=== PATIENT | female | born 1995 | race Caucasian/White ===

== ENCOUNTER 2020-01-26 16:43 | Observation (INO) | payer OTHER, SELFPAY ==
[2020-01-26 17:00] VITALS: BMI 32.2
[2020-01-26 17:05] VITALS: BP 136/79; PULSE 94
[2020-01-26 17:16] VITALS: BP 132/74; PULSE 98
[2020-01-26 17:20] VITALS: TEMP 37
[2020-01-26 17:34] LABS: Glucose Point of Care 120 (65-105)
--- NOTE | 2020-01-26 17:34 | OBADM ---
This patient, Artemio Ching, admitted to the OB room [facility] for observation. Patient/family oriented to hospital policies and general routines including ID bracelet, bed and alarms, visiting hours, pain management, procedures, bathroom and other care routines, personal items, smoking policy, room service/diet, and visiting hours. Patient/Family are encouraged to report perceived risks to care and to ask questions if they do not understand what they are told or what they should do.
[2020-01-26 17:45] VITALS: BP 137/85; PULSE 102
[2020-01-26] MEDS: ONDANSETRON HCL ODT 4 MG TABLET 8 MG PO (17:48)
[2020-01-26 18:01] VITALS: BP 134/82; PULSE 98
[2020-01-26 18:15] VITALS: BP 129/79; PULSE 96
--- NOTE | 2020-02-01 06:58 | PM.OBTRLD ---
OB - Triage/Final Diagnosis Visit Information Date of evaluation: 01/26/20 Reason for evaluation: other (dizziness) Evaluation Laboratory results: Laboratory Tests 01/26/20 17:30 POC Capillary Glucose 120 H
== END 2020-01-26 18:28 | disposition home or self-care (01) ==
LOC: ANHOBPP 01-28 13:18
PROVIDERS: Obstetrics & Gynecology; Admitting Provider Student in an Organized Health Care Education/Training Program; Visit Provider Student in an Organized Health Care Education/Training Program
DX: R42 Dizziness and giddiness (principal)
CPT/HCPCS: A9270; G0378; G0379

== ENCOUNTER 2020-05-31 08:59 | Outpatient (CLI) | payer OTHER, SELFPAY ==
[2020-05-31] VITALS (9 sets, daily range): BP systolic 117–152; BP diastolic 84–100; PULSE 96–142; RESP 18; TEMP 36.3
--- NOTE | 2020-05-31 08:59 | PC.NURSE ---
Patient sent to L&D from her OB office for elevated blood pressures. Patient reports occasional headaches and blurred vision.
--- NOTE | 2020-05-31 09:44 | PM.OBTRLD ---
OB - Triage/Final Diagnosis Visit Information Date of evaluation: 05/31/20 Reason for evaluation: other (gest htn) Evaluation Vital signs: Vital Signs - 24 hr 05/31/20 09:11 05/31/20 09:15 05/31/20 09:30 Pulse Rate 115 H 142 H 113 H Blood Pressure 152/100 H 142/84 H 131/90
[2020-05-31 09:53] LABS: Basophils Percent Auto 0.3 % (0.2-1.2); Eosinophils Absolute Auto 0.1 K/mm3 (0-0.3); Eosinophils Percent Auto 0.8 % (0-4.4); Hematocrit 32.5 % (37.0-47.0); Immature Granulocyte Absolute 0.08 K/mm3 (0.00-0.031); Immature Granulocyte Percent A 0.9 % (0-0.5); Lymphocytes Absolute Auto 1.29 K/mm3 (0.9-3.2); Lymphocytes Percent Auto 14.9 % (18.3-44.2); Mean Corpuscular HGB Conc 33.8 g/dl (32-36); Mean Corpuscular Hemoglobin 28.9 pg (26-34); Mean Corpuscular Volume 85.5 fl (80-100); Mean Platelet Volume 12.6 fl (7.4-10.4); Monocytes Absolute Auto 0.7 K/mm3 (0.1-0.6); Monocytes Percent Auto 8.6 % (2.6-8.5); Neutrophils Absolute Auto 6.4 K/mm3 (1.3-6.7); Neutrophils Percent Auto 74.5 % (45.5-73.1); Platelet Count Result 160 k/mm3 (150-375); Red Cell Distribution Width 14.7 % (11.5-14.5); White Blood Count 8.6 K/mm3 (4.5-10.0)
[2020-05-31 09:56] LABS: Add Urine Microscopic? NO; Appearance Urine Clear (Clear); Bilirubin Urine Negative (Negative); Blood Urine Negative (Negative); Color Urine Straw (Yellow); Glucose Urine UA Negative (Negative); Ketones Urine Negative (Negative); Leukocyte Esterase Ur Negative LEU/UL (NEGATIVE); Nitrate Urine Negative (Negative); Protein Urine Negative (Negative); Specific Grav Ur 1.005 (1.001-1.035); Urobilinogen Urine Negative mg/dL (<2.0)
[2020-05-31 10:00] LABS: Creatinine Urine 36.4 mg/dL; Total Protein Urine Random 16 mg/dL
[2020-05-31 10:08] LABS: Alanine Aminotransferase 12 U/L (4-35); Albumin Level 3.3 g/dL (3.5-5.1); Alkaline Phosphatase 132 U/L (38-126); Anion Gap 8 mmol/L (8-16); Aspartate Amino Transferase 18 U/L (14-36); Bilirubin,Total 0.3 mg/dL (0.2-1.3); Blood Urea Nitrogen 6 mg/dL (7-17); Carbon Dioxide 23 mmol/L (22-30); Chloride 105 mmol/L (98-107); Estimated Glomerular Filt Rate > 60; Glucose 93 mg/dL (65-105); Sodium 136 mmol/L (137-145); Uric Acid 6.1 mg/dL (2.5-7.5)
[2020-05-31 10:23] LABS: Potassium 3.3 mmol/L (3.4-5.0)
--- NOTE | 2020-05-31 10:29 | PC.NURSE ---
Dr. Anaya notified regarding reactive nst, serial blood pressures, and lab results. Received orders from Dr. Anaya to cancel 24 hour urine order and to discharge patient to home.
== END 2020-05-31 10:38 | disposition home or self-care (01) ==
LOC: ANHOBOP 09:05 → ANHOBPP 09:05
PROVIDERS: Visit Provider Obstetrics & Gynecology
DX: O13.9 Gestational [pregnancy-induced] hypertension without significant proteinuria, unspecified trimester (principal); O26.899 Other specified pregnancy related conditions, unspecified trimester; R51.9 Headache, unspecified; H53.8 Other visual disturbances; Z3A.00 Weeks of gestation of pregnancy not specified
CPT/HCPCS: 36415; 59025; 80053; 81003; 82570; 84156; 84550; 85025; 87086; 99199

== ENCOUNTER 2020-06-05 09:35 | Outpatient (RCR) | payer OTHER, SELFPAY ==
[2020-06-05 10:13] LABS: Basophils Percent Auto 0.4 % (0.2-1.2); Eosinophils Absolute Auto 0.1 K/mm3 (0-0.3); Eosinophils Percent Auto 1.1 % (0-4.4); Hematocrit 33.2 % (37.0-47.0); Hemoglobin 11.4 g/dL (12.0-15.0); Immature Granulocyte Absolute 0.09 K/mm3 (0.00-0.031); Lymphocytes Absolute Auto 1.49 K/mm3 (0.9-3.2); Lymphocytes Percent Auto 16.1 % (18.3-44.2); Mean Corpuscular HGB Conc 34.3 g/dl (32-36); Mean Corpuscular Hemoglobin 28.8 pg (26-34); Mean Corpuscular Volume 83.8 fl (80-100); Mean Platelet Volume 12.3 fl (7.4-10.4); Monocytes Absolute Auto 0.6 K/mm3 (0.1-0.6); Monocytes Percent Auto 6.6 % (2.6-8.5); Neutrophils Absolute Auto 6.9 K/mm3 (1.3-6.7); Neutrophils Percent Auto 74.8 % (45.5-73.1); Platelet Count Result 160 k/mm3 (150-375); Red Blood Count 3.96 M/mm3 (4.2-5.4); Red Cell Distribution Width 14.6 % (11.5-14.5); White Blood Count 9.3 K/mm3 (4.5-10.0)
[2020-06-05 10:17] LABS: Add Urine Microscopic? NO; Appearance Urine Clear (Clear); Bilirubin Urine Negative (Negative); Blood Urine Negative (Negative); Color Urine Colorless (Yellow); Glucose Urine UA Negative (Negative); Ketones Urine Negative (Negative); Leukocyte Esterase Ur Negative LEU/UL (NEGATIVE); Nitrate Urine Negative (Negative); Protein Urine Negative (Negative); Urobilinogen Urine Negative mg/dL (<2.0)
[2020-06-05 10:24] LABS: Specific Grav Ur 1.003 (1.001-1.035)
[2020-06-05 10:25] LABS: Creatinine Urine 12.2 mg/dL; Total Protein Urine Random 15 mg/dL
[2020-06-05 10:26] LABS: Alanine Aminotransferase 11 U/L (4-35); Albumin Level 3.3 g/dL (3.5-5.1); Alkaline Phosphatase 133 U/L (38-126); Anion Gap 6 mmol/L (8-16); Aspartate Amino Transferase 18 U/L (14-36); Bilirubin,Total 0.2 mg/dL (0.2-1.3); Blood Urea Nitrogen 6 mg/dL (7-17); Calcium 9.2 mg/dL (8.4-10.2); Carbon Dioxide 23 mmol/L (22-30); Chloride 105 mmol/L (98-107); Estimated Glomerular Filt Rate > 60; Glucose 109 mg/dL (65-105); Potassium 3.5 mmol/L (3.4-5.0); Sodium 134 mmol/L (137-145); Uric Acid 5.3 mg/dL (2.5-7.5)
[2020-06-05 12:12] VITALS: BP 137/86
[2020-06-05 12:13] VITALS: BP 137/86
== END 2020-06-08 08:05 | disposition home or self-care (01) ==
LOC: ANHOBOP 09:35
PROVIDERS: Visit Provider Obstetrics & Gynecology
DX: O26.893 Other specified pregnancy related conditions, third trimester (principal); R03.0 Elevated blood-pressure reading, without diagnosis of hypertension; Z3A.37 37 weeks gestation of pregnancy
CPT/HCPCS: 36415; 59025; 80053; 81003; 82570; 84156; 84550; 85025; 87086; 87088

== ENCOUNTER 2020-06-05 17:52 | Inpatient (IN) | payer OTHER, SELFPAY ==
[2020-06-05] VITALS (18 sets, daily range): BP systolic 133–149; BP diastolic 76–99; PULSE 79–111; BMI 37.5
--- NOTE | 2020-06-05 18:20 | LDADM ---
This patient, Artemio Ching, was admitted to Labor/Delivery/Recovery 107 on 06/05/20 at 17:52. Plans for labor, pain management and were discussed with patient. Patient/family oriented to hospital policies and general routines including ID bracelet, bed and alarms, visiting hours, pain management, procedures, bathroom and other care routines, personal items, smoking policy, room service/diet and guest tray routines, security routines, and visiting hours. Patient/Family are encouraged to report perceived risks to care and to ask questions if they do not understand what they are told or what they should do. See OBIX for further documentation.
[2020-06-05] MEDS: DINOPROSTONE 10 MG VAG INSERT VAGINAL (19:13)
[2020-06-06] VITALS (221 sets, daily range): BP systolic 81–178; BP diastolic 18–134; PULSE 68–214; RESP 18; TEMP 36.1–36.7; O2SAT 76–100
[2020-06-06] MEDS: fentaNYL CITRATE INJ (*CRX) 100 MCG/2 ML VIAL 50 MCG IV PUSH ×2 (00:26→03:48)
[2020-06-06] MEDS: FAMOTIDINE 20 MG/2 ML VIAL IV PUSH (04:19)
--- NOTE | 2020-06-06 06:06 | WPDANESEPP ---
Anes - Eval Pre Procedure Procedure: labor epidural Date/Time: 06/06/20 06:06 Surgeon: sim thakur Pre Op Diagnosis: Induction of Labor Patient Data Age: 25 Gender: F Height: 1.57 m Weight: 93 kg Last Vital Signs Temp 36.4 C 06/06/20 05:36 Pulse 95 06/06/20 06:00 BP 140/93 H 06/06/20 06:00 Allergies Allergy/AdvReac Type Severity Reaction Status Date / Time No Known Allergies Allergy Verified 01/26/20 17:43 Home Medications Medication Instructions Recorded Confirmed Type PNV cmb#95-ferrous fumarate-FA 1 tablet PO DAILY 05/29/20 05/29/20 History [] ergocalciferol (vitamin D2) 1,250 mcg PO WEEKLY 05/29/20 05/29/20 History [Vitamin D2] ferrous sulfate [Iron (ferrous 325 mg PO DAILY 05/29/20 05/29/20 History sulfate)] ondansetron 4 mg PO Q6H PRN 05/29/20 05/29/20 History Laboratory Tests 06/05/20 06/05/20 19:09 19:09 RPR Pending Blood Type O Positive Antibody Screen Negative Patient hx anesthesia problems: none Family hx anesthesia problems: none PMFSH Past Medical History Medical History (Updated 06/06/20 @ 06:07 by Nieves Adame CRNA) PIH ( induced hypertension) Family History Family History (Updated 05/29/20 @ 13:02 by Koko Palmer RN) Sibling Diabetes mellitus Thyroid disease Father Hypertension Social History Social History Smoking status: Never smoker Second hand tobacco smoke exposure: Yes Substance use: never Gender identity (if verbalized by the patient): Female Spiritual care concerns: No Exam Day of Procedure 06/06/20 06:06
[2020-06-06] MEDS: OXYTOCIN 30 UNITS/NS 500 ML 30 UNITS/500 ML BAG IV CONT (06:19)
[2020-06-06] MEDS: LACTATED RINGERS 1,000 ML 125 ML IV CONT (06:45)
--- NOTE | 2020-06-06 06:46 | PM.IMHP ---
H&P: HPI History of Present Illness Date/Time: 06/06/20 06:46 Chief complaint: Induction of Labor Narrative: Artemio Ching is a 25 year old female whose last menstrual period August 2019, EDC 06/24/2020 confirmed by 7 week ultrasound presents at 30 7 and half weeks gestation for induction of she has had worsening elevated blood pressures. She has a trace protein she has had a headache. Her cervix is unfavorable and loss seen and test with Cervidil. Her has been uncomplicated prior although she had a diabetic screen by her 3hour GTT was normal she is negative for group B strep Review of Systems Review of Systems: All systems reviewed & are unremarkable except as noted in HPI and below PMFSH Past Medical History Medical History PIH ( induced hypertension) Family History Family History Sibling Diabetes mellitus Thyroid disease Father Hypertension Social History Social History Smoking status: Never smoker Second hand tobacco smoke exposure: Yes Substance use: never Gender identity (if verbalized by the patient): Female Spiritual care concerns: No Meds Home Medications and Allergies Home Medications Medication Instructions Recorded Confirmed Type PNV cmb#95-ferrous fumarate-FA 1 tablet PO DAILY 05/29/20 05/29/20 History [] ergocalciferol (vitamin D2) 1,250 mcg PO WEEKLY 05/29/20 05/29/20 History [Vitamin D2] ferrous sulfate [Iron (ferrous 325 mg PO DAILY 05/29/20 05/29/20 History sulfate)] ondansetron 4 mg PO Q6H PRN 05/29/20 05/29/20 History Allergies Allergy/AdvReac Type Severity Reaction Status Date / Time No Known Allergies Allergy Verified 01/26/20 17:43 Vital Signs Vital Signs - 24 hr 06/05/20 18:19 06/05/20 18:30 06/05/20 18:45 Temperature Pulse Rate 111 H 109 H 110 H Blood Pressure 149/95 H 133/97 H 141/91 H 06/05/20 19:15 06/05/20 19:30 06/05/20 19:45 Temperature Pulse Rate 79 95 91 Blood Pressure 144/96 H 134/82 145/88 H 06/05/20 20:00 06/05/20 20:15 06/05/20 20:30 Temperature Pulse Rate 92 90 101 H Blood Pressure 143/90 H 146/79 H 133/76 06/05/20 20:45 06/05/20 21:00 06/05/20 21:15 Temperature Pulse Rate 89 93 90 Blood Pressure 138/84 147/91 H 140/87 06/05/20 22:36 06/05/20 22:45 06/05/20 23:00 Temperature Pulse Rate 99 93 99 Blood Pressure 146/98 H 147/91 H 146/99 H 06/05/20 23:15 06/05/20 23:30 06/05/20 23:45 Temperature Pulse Rate 99 88 95 Blood Pressure 149/95 H 140/90 133/82 06/06/20 00:00 06/06/20 00:30 06/06/20 00:34 Temperature 97.4 F L Pulse Rate 106 H 86 Blood Pressure 128/72 141/89 H 06/06/20 00:45 06/06/20 01:00 06/06/20 01:15 Temperature Pulse Rate 85 78 94 Blood Pressure 143/81 H 130/84 147/94 H 06/06/20 01:30 06/06/20 01:45 06/06/20 01:50 Temperature Pulse Rate 82 92 85 Blood Pressure 149/92 H 178/88 H 134/89 06/06/20 02:00 06/06/20 02:15 06/06/20 02:30 Temperature Pulse Rate 92 103 H 106 H Blood Pressure 122/71 125/76 120/74 06/06/20 02:45 06/06/20 03:00 06/06/20 03:15 Temperature Pulse Rate 108 H 106 H 100 Blood Pressure 122/72 114/70 143/92 H 06/06/20 03:30 06/06/20 03:45 06/06/20 04:00 Temperature Pulse Rate 95 97 92 Blood Pressure 141/83 H 149/91 H 147/82 H 06/06/20 04:15 06/06/20 04:30 06/06/20 04:45 Temperature Pulse Rate 97 105 H 88 Blood Pressure 140/83 140/85 146/101 H 06/06/20 05:36 06/06/20 05:37 06/06/20 05:45 Temperature 97.6 F Pulse Rate 102 H 99 Blood Pressure 138/91 H 138/98 H 06/06/20 06:00 06/06/20 06:15 06/06/20 06:30 Temperature Pulse Rate 95 96 94 Blood Pressure 140/93 H 133/93 H 135/95 H 06/06/20 06:45 Temperature Pulse Rate 85 Blood Pressure 139/85 Exam Co
[2020-06-06] MEDS: fentaNYL CITRATE INJ (*CRX) 100 MCG/2 ML VIAL IV PUSH (07:01)
[2020-06-06 08:57] LABS: Rapid Plasma Reagin Non-Reactive (NonReactive)
--- NOTE | 2020-06-06 09:44 | PM.OBPNVD ---
OB - PN: Subj Subjective Date/time seen: 06/06/20 09:44 another episode of decels pit off/repositiones fhts good now iupc and fse in place watch closely OB - PN: Obj Data Labs Labs: Laboratory Results - last 24 hr 06/05/20 06/05/20 19:09 19:09 RPR Non-reactive Blood Type O Positive Antibody Screen Negative OB - PN A/P Time Spent With Patient Time: Total time spent is greater than 50% in coordination of care (as documented) at patient's floor/unit and/or counseling patient:
--- NOTE | 2020-06-06 15:52 | PM.OBPRVD ---
OB - Delivery Note Procedure Delivery date: 06/06/20 Procedure: mil/ events: Induced HTN and Labor Induction Intrapartal events: None Induction method: AROM Delivery augmentation: pitocin Delivery monitor: external FHT, internal FHT and internal uterine Route of delivery: Episiotomy description: None Laceration Description: None Anesthesia type: Epidural Disposition: floor Baby Date of : 06/06/20 Time of : 15:44 Weeks of gestation at delivery: 38 Infant gender: Male presentation: vertex position: Right Occiput Anterior Placenta delivery description: Spontaneous cord vessel description: 3 Vessels score one minute: 8 score five minutes: 9
[2020-06-06] MEDS: OXYTOCIN 30 UNITS/NS 500 ML 30 UNITS/500 ML BAG 125 UNITS IV CONT (16:45)
--- NOTE | 2020-06-06 18:49 | PC.NURSE ---
This patient, Artemio Ching, was received from Labor and Deliver on 06/06/20 at 1846. Personal belongings list checked and signed. Patient/family oriented to unit policies and routines
[2020-06-06] MEDS: IBUPROFEN 600 MG TABLET PO (20:34)
[2020-06-07] MEDS: IBUPROFEN 600 MG TABLET PO ×2 (05:01→16:09)
[2020-06-07 05:09] LABS: Hematocrit 31.3 % (37.0-47.0); Hemoglobin 10.6 g/dL (12.0-15.0)
--- NOTE | 2020-06-07 06:59 | PM.OBPNVD ---
OB - PN: Subj Subjective Date/time seen: 06/07/20 06:59 Patient comments: no complaints and pain well controlled baby status: doing well and nursing well OB - PN: Obj Data Labs CBC & Chem 7: 06/07/20 04:35 Labs: Laboratory Results - last 24 hr 06/05/20 06/07/20 19:09 04:35 Hgb 10.6 L Hct 31.3 L RPR Non-reactive OB - PN A/P Plan day: 1 Plan: routine care Time Spent With Patient Time: Total time spent is greater than 50% in coordination of care (as documented) at patient's floor/unit and/or counseling patient: Time with patient: less than 15 minutes Review of Systems Review of Systems: All systems reviewed & are unremarkable except as noted in HPI and below Exam Const: General: no acute distress Eyes: General: appearance normal, both eyes and all related structures Neck: Neck: supple and no JVD Thyroid: thyroid normal Resp: Effort & Inspection: normal respiratory effort Auscultation: clear to auscultation bilaterally Cardio: Rate: regular rate Rhythm: regular rhythm GI: Inspection: non-distended GI Palp: Yes Soft to palpation, No Tenderness to palpation present (GI) and No Guarding due to palpation present (GI) Auscultation: normal bowel sounds : General: Yes bladder normal to palpation External Female Exam: normal external appearance Speculum Exam - Vagina: normal vaginal discharge and No vaginal bleeding Speculum Exam - Cervix: nontender Bimanual exam- vagina & uterus: bladder normal to palpation and No Cervical tenderness present OB/external & speculum: No vaginal bleeding Skin: General skin exam: no rashes or lesions noted Extrem: General: normal to inspection and no edema Psych: Mental Status: mental status grossly normal Affect: normal affect
[2020-06-07] MEDS: MULTIVIT/MIN/PREN/FOL AC/IRON TABLET 1 TAB PO (07:41)
[2020-06-07] MEDS: LANOLIN (LANSINOH) 7.5 GM CREAM 1 APPLIC TOPICAL (07:41)
[2020-06-07] MEDS: ACETAMINOPHEN 325 MG TABLET 650 MG PO ×2 (07:43→16:10)
[2020-06-07 07:45] VITALS: BP 142/83; PULSE 91; RESP 18; TEMP 36.8; O2SAT 100
--- NOTE | 2020-06-07 13:23 | WPDANLDPN2 ---
Anes-Prog Note L&D Date/Time: 06/07/20 13:23 Comfortable throughout: labor and delivery Neuraxial method: epidural Epidural/Spinal procedure site: tender Neuro status: Neuro function grossly intact. Cardiovascular status: normal Respiratory status: normal Airway patency: baseline Mental status: baseline Post-Op hydration status: normal Vital Signs: Last Vital Signs Temp 98.2 F 06/07/20 07:45 Pulse 91 06/07/20 07:45 Resp 18 06/07/20 07:45 BP 142/83 H 06/07/20 07:45 Pulse Ox 100 06/07/20 07:45 Pain score (VAS): 2/10 I/O: Intake & Output 06/06/20 06/07/20 06/07/20 23:59 07:59 15:59 Intake Total 1500 Balance 1500 Patient feedback: Patient satisfied with anesthetic care.
--- NOTE | 2020-06-07 17:35 | PC.NURSE ---
Patient viewed the discharge video Mother & Baby Care, The First Two Weeks . Patient was given the opportunity and encouraged to ask questions. Patient verbalized understanding of information shared and has been given the mother/baby guide for home reference.
[2020-06-07 19:50] VITALS: BP 141/94; PULSE 98; RESP 16; TEMP 36.4; O2SAT 99
[2020-06-08 05:05] VITALS: BP 139/85
[2020-06-08] MEDS: IBUPROFEN 600 MG TABLET PO (05:05)
--- NOTE | 2020-06-08 06:13 | P.DS_ITS ---
DS: Admitting Diagnosis Admitting Diagnosis Admitting Diagnosis: Induction of Labor term iup/gest htn DS: Summary Time Spent with Patient Time attestation: Total time spent providing and/or coordinating discharge se rvices: Patient was admitted for induction of labor secondary to mildly elevated blood pressures at 38 weeks. She underwent spontaneous vaginal delivery which was unremarkable. Hospital course was unremarkable. Her condition upon discharge was stable Exam Const: General: no acute distress Eyes: General: appearance normal, both eyes and all related structures Neck: Neck: supple and no JVD Thyroid: thyroid normal Resp: Effort & Inspection: normal respiratory effort Auscultation: clear to auscultation bilaterally Cardio: Rate: regular rate Rhythm: regular rhythm GI: Inspection: non-distended GI Palp: Yes Soft to palpation, No Tenderness to palpation present (GI) and No Guarding due to palpation present (GI) Auscultation: normal bowel sounds : General: Yes bladder normal to palpation External Female Exam: normal external appearance Speculum Exam - Vagina: normal vaginal discharge and No vaginal bleeding Speculum Exam - Cervix: nontender Bimanual exam- vagina & uterus: bladder normal to palpation and No Cervical tenderness present OB/external & speculum: No vaginal bleeding Skin: General skin exam: no rashes or lesions noted Extrem: General: normal to inspection and no edema Psych: Mental Status: mental status grossly normal Affect: normal affect Discharge Plan Discharge Attending physician on discharge: Villa Anaya Discharging Clinician: Villa Anaya Patient Disposition: Home, Self-Care Activity: may shower, no straining and pelvic rest Diet: heart healthy Wound Care Instructions: follow printed instructions Patient Instructions: Antibiotic Form Stand Alone Forms: General Discharge Information Follow-up/Referrals: Villa Anaya MD [Physician] - Discharge Medications: Continued ferrous sulfate [Iron (ferrous sulfate)] 325 mg (65 mg iron) Tablet 325 mg PO DAILY RF: 0 ergocalciferol (vitamin D2) [Vitamin D2] 1,250 mcg (50,000 unit) Capsule 1,250 mcg PO WEEKLY RF: 0 ondansetron 4 mg Tablet,Disintegrating 4 mg PO Q6H PRN (Reason: Nausea) RF: 0 PNV cmb#95-ferrous fumarate-FA [] 28 mg iron- 800 mcg Tablet 1 tablet PO DAILY RF: 0 Date of admission: 06/05/20 17:52 Primary Care Provider: PHYSICIAN,GEOTECHNICAL ENGINEERING TECHNICIAN Admitting Provider: Villa Anaya Attending physician on admission: Villa Anaya
--- NOTE | 2020-06-08 06:15 | PM.OBPNVD ---
OB - PN: Subj Subjective Date/time seen: 06/08/20 06:15 Patient comments: no complaints and pain well controlled baby status: doing well and nursing well OB - PN: Obj Data Labs CBC & Chem 7: 06/07/20 04:35 OB - PN A/P Plan day: 2 Plan: routine care, discharge home and follow up 6 weeks Time Spent With Patient Time: Total time spent is greater than 50% in coordination of care (as documented) at patient's floor/unit and/or counseling patient: Time with patient: less than 15 minutes Review of Systems Review of Systems: All systems reviewed & are unremarkable except as noted in HPI and below Exam Const: General: no acute distress Eyes: General: appearance normal, both eyes and all related structures Neck: Neck: supple and no JVD Thyroid: thyroid normal Resp: Effort & Inspection: normal respiratory effort Auscultation: clear to auscultation bilaterally Cardio: Rate: regular rate Rhythm: regular rhythm GI: Inspection: non-distended GI Palp: Yes Soft to palpation, No Tenderness to palpation present (GI) and No Guarding due to palpation present (GI) Auscultation: normal bowel sounds : General: Yes bladder normal to palpation External Female Exam: normal external appearance Speculum Exam - Vagina: normal vaginal discharge and No vaginal bleeding Speculum Exam - Cervix: nontender Bimanual exam- vagina & uterus: bladder normal to palpation and No Cervical tenderness present OB/external & speculum: No vaginal bleeding Skin: General skin exam: no rashes or lesions noted Extrem: General: normal to inspection and no edema Psych: Mental Status: mental status grossly normal Affect: normal affect
[2020-06-08 07:30] VITALS: BP 129/89; PULSE 98; RESP 16; TEMP 36.7; O2SAT 98
--- NOTE | 2020-06-08 09:00 | PC.NURSE ---
Consult with pt., mother reports she is pumping and bottle feeding formula at this time, she will switch to breastmilk once available. Reviewed instructions breast pump care and usage, pumping schedule, nipple care, and collection and storage of breast milk. Encouraged [id number], breast massage and manual expression to stimulate supply. Pumping log provided and reviewed. Assessed patient for correct flange size, placement and draw. Patient verbalizes and demonstrates understanding of instructions. Mother is feeding as required and waking infant to feed if needed. Infant is currently meeting outcomes for weight, output, jaundice and feeding frequencies. Mother states she feels confident to continue current feeding plan at home. Reviewed transition to breasmilk, signs of adequate intake intake, and engorgement/relief. Instructed to call ICP if intake/output less than required. Reviewed regular medications mother is taking. Information provided per Laura. Reviewed community resources on the [facility] website and in the Mom/Baby guide. Information on outpatient services provided. Mother has no further questions at this time.
[2020-06-08] MEDS: MULTIVIT/MIN/PREN/FOL AC/IRON TABLET 1 TAB PO (09:37)
[2020-06-08] MEDS: ACETAMINOPHEN 325 MG TABLET 650 MG PO (09:39)
--- NOTE | 2020-06-08 10:00 | PC.NURSE ---
Anesthesia here to talk with pt regarding persistent head/neck ache.
[2020-06-09 10:48] VITALS: BP 136/94; PULSE 100; RESP 20; TEMP 37.2; O2SAT 99
== END 2020-06-08 10:30 | disposition home or self-care (01) | DRG 807 ==
LOC: ANHLDR 06-06 11:23 → ANHOB2 06-06 19:43
PROVIDERS: Admitting Provider Obstetrics & Gynecology; Visit Provider Obstetrics & Gynecology
DX: O13.4 Gestational [pregnancy-induced] hypertension without significant proteinuria, complicating childbirth (principal); Z37.0 Single live birth; Z3A.37 37 weeks gestation of pregnancy; O36.8330 Maternal care for abnormalities of the fetal heart rate or rhythm, third trimester, not applicable or unspecified
CPT/HCPCS: 36415; 59025; 80053; 81003; 82570; 84156; 84550; 85014; 85018; 85025; 86592; 86850; 86900; 86901; 87086; 87088; A9270; J2590; J2795; J3010; J7120

== ENCOUNTER 2020-06-09 12:01 | Outpatient (CLI) | payer OTHER, SELFPAY ==
[2020-06-09 12:30] VITALS: BP 148/92; PULSE 94; TEMP 36.8
[2020-06-09 12:46] VITALS: BP 154/92; PULSE 99
[2020-06-09 12:49] LABS: Basophils Percent Auto 0.3 % (0.2-1.2); Eosinophils Absolute Auto 0.2 K/mm3 (0-0.3); Eosinophils Percent Auto 1.9 % (0-4.4); Hematocrit 31.4 % (37.0-47.0); Hemoglobin 10.6 g/dL (12.0-15.0); Immature Granulocyte Absolute 0.15 K/mm3 (0.00-0.031); Immature Granulocyte Percent A 1.3 % (0-0.5); Lymphocytes Absolute Auto 1.68 K/mm3 (0.9-3.2); Lymphocytes Percent Auto 14.2 % (18.3-44.2); Mean Corpuscular HGB Conc 33.8 g/dl (32-36); Mean Corpuscular Hemoglobin 28.8 pg (26-34); Mean Corpuscular Volume 85.3 fl (80-100); Mean Platelet Volume 12.4 fl (7.4-10.4); Monocytes Absolute Auto 0.7 K/mm3 (0.1-0.6); Monocytes Percent Auto 6.1 % (2.6-8.5); Neutrophils Percent Auto 76.2 % (45.5-73.1); Platelet Count Result 159 k/mm3 (150-375); Red Blood Count 3.68 M/mm3 (4.2-5.4); Red Cell Distribution Width 14.6 % (11.5-14.5); White Blood Count 11.9 K/mm3 (4.5-10.0)
[2020-06-09 12:59] LABS: Alanine Aminotransferase 16 U/L (4-35); Albumin Level 3.4 g/dL (3.5-5.1); Alkaline Phosphatase 108 U/L (38-126); Anion Gap 8 mmol/L (8-16); Aspartate Amino Transferase 23 U/L (14-36); Bilirubin,Total 0.2 mg/dL (0.2-1.3); Blood Urea Nitrogen 7 mg/dL (7-17); Calcium 8.8 mg/dL (8.4-10.2); Carbon Dioxide 24 mmol/L (22-30); Chloride 108 mmol/L (98-107); Estimated Glomerular Filt Rate > 60; Glucose 97 mg/dL (65-105); Potassium 3.3 mmol/L (3.4-5.0); Sodium 140 mmol/L (137-145); Uric Acid 6.2 mg/dL (2.5-7.5)
[2020-06-09 13:01] VITALS: BP 135/91; PULSE 88
--- NOTE | 2020-06-09 13:12 | PM.OBTRLD ---
OB - Triage/Final Diagnosis Visit Information Date of evaluation: 06/09/20 Reason for evaluation: other (htn/headache) Evaluation Laboratory results: Laboratory Tests 06/09/20 06/09/20 12:40 12:40 WBC 11.9 H RBC 3.68 L Hgb 10.6 L Hct 31.4 L MCV 85.3 MCH 28.8 MCHC 33.8 RDW 14.6 H Plt Count 159 MPV 12.4 H Immature Gran % (Auto) 1.3 H Neut % (Auto) 76.2 H Lymph % (Auto) 14.2 L [place] % (Auto) 6.1 Eos % (Auto) 1.9 Baso % (Auto) 0.3 Lymph # (Auto) 1.68 [place] # (Auto) 0.7 H Eos # (Auto) 0.2 Baso # (Auto) 0.0 Abs Immat Gran (auto) 0.15 H Absolute Neuts (auto) 9.0 H Absolute Nucleated RBC 0.0 Nucleated RBC % 0.0 Sodium 140 Potassium 3.3 L Chloride 108 H Carbon Dioxide 24 Anion Gap 8 BUN 7 Creatinine 0.70 Estim Creat Clear Calc Not Reportable Estimated GFR > 60 Glucose 97 Uric Acid 6.2 Calcium 8.8 Total Bilirubin 0.2 AST 23 ALT 16 Alkaline Phosphatase 108 Total Protein 6.0 L Albumin 3.4 L Vital signs: Vital Signs - 24 hr 06/09/20 12:30 06/09/20 12:46 06/09/20 13:01 Temperature 98.2 F Pulse Rate 94 99 88 Blood Pressure 148/92 H 154/92 H 135/91 H Blood Pressure [Left Arm] 148/92 H
[2020-06-09 13:16] VITALS: BP 143/85; PULSE 88
[2020-06-09 13:31] VITALS: BP 161/89; PULSE 94
--- NOTE | 2020-06-09 13:40 | PC.NURSE ---
called Dr. Cintia Weaver with BP and lab result. order received for labetalol and follow up on friday or friday at office. Discharge instruction given regarding Hypertension. pt verbalized understanding.
[2020-06-09 13:47] VITALS: PULSE 90
[2020-06-09] MEDS: LABETALOL HCL 100 MG TABLET PO (13:47)
== END 2020-06-09 14:13 | disposition home or self-care (01) ==
LOC: ANHOBOP 12:07 → ANHOBPP 12:18
PROVIDERS: Visit Provider Obstetrics & Gynecology
DX: O13.9 Gestational [pregnancy-induced] hypertension without significant proteinuria, unspecified trimester (principal); Z3A.00 Weeks of gestation of pregnancy not specified
CPT/HCPCS: 36415; 80053; 84550; 85025; 99199; A9270

== ENCOUNTER → 2021-05-16 11:48 | Outpatient (CLI) | payer BC, SELFPAY ==
--- NOTE | ~2021-05-16 | US_ITS ---
EXAMINATION: US thyroid EXAM DATE: 05/16/2021 12:03 INDICATION: Disorder of thyroid, unspecified. TECHNIQUE: Multiple grayscale and Doppler images of the thyroid were obtained (by a technologist who performed the scan) and subsequently reviewed. Individual nodules and recommendations may be reporte d in accordance with TI-RADS system as designated by the 2017 ACR White Paper TI-RADS committee. The re is no prior study for comparison. FINDINGS: The right thyroid lobe measures 4.0 x 1.3 x 1.6 cm, the left measuring 4.2 x 1.2 x 1.6 cm, mildly enl arged. Mildly diffusely heterogeneous thyroid parenchyma and mildly increased vascularity. A focal 3 mm left lobe hypoechoic region was measured as a discrete nodule. This is not clinically significant finding. IMPRESSION: Mild thyromegaly. Reviewed, dictated and finalized at location A. IMPRESSION: Mild thyromegaly.
== END ==
PROVIDERS: PCP Emergency Medicine; Visit Provider Emergency Medicine
DX: E01.0 Iodine-deficiency related diffuse (endemic) goiter (principal)
CPT/HCPCS: 76536

== ENCOUNTER 2022-06-20 04:58 | Inpatient (IN) | payer BC, SELFPAY ==
[2022-06-20] VITALS (220 sets, daily range): BP systolic 90–155; BP diastolic 45–108; PULSE 76–158; TEMP 36.1–36.7; O2SAT 91–100; BMI 33.8
[2022-06-20 05:54] LABS: Basophils Percent Auto 0.3 % (0.2-1.2); Eosinophils Absolute Auto 0.2 K/mm3 (0-0.3); Eosinophils Percent Auto 2.2 % (0-4.4); Hemoglobin 10.5 g/dL (12.0-15.0); Immature Granulocyte Absolute 0.07 K/mm3 (0.00-0.031); Immature Granulocyte Percent A 0.8 % (0-0.5); Lymphocytes Absolute Auto 1.77 K/mm3 (0.9-3.2); Lymphocytes Percent Auto 20.2 % (18.3-44.2); Mean Corpuscular HGB Conc 32.8 g/dl (32-36); Mean Corpuscular Hemoglobin 26.6 pg (26-34); Mean Corpuscular Volume 81.2 fl (80-100); Mean Platelet Volume 12.3 fl (7.4-10.4); Monocytes Absolute Auto 0.7 K/mm3 (0.1-0.6); Monocytes Percent Auto 7.7 % (2.6-8.5); Neutrophils Percent Auto 68.8 % (45.5-73.1); Platelet Count Result 176 k/mm3 (150-375); Red Blood Count 3.94 M/mm3 (4.2-5.4); Red Cell Distribution Width 13.7 % (11.5-14.5); White Blood Count 8.8 K/mm3 (4.5-10.0)
[2022-06-20 06:06] LABS: Alanine Aminotransferase 17 U/L (6-35); Albumin Level 3.5 g/dL (3.5-5.1); Alkaline Phosphatase 179 U/L (38-126); Anion Gap 11 mmol/L (8-16); Aspartate Amino Transferase 21 U/L (14-36); Bilirubin,Total 0.4 mg/dL (0.2-1.3); Blood Urea Nitrogen 7 mg/dL (7-17); Calcium 8.7 mg/dL (8.4-10.2); Carbon Dioxide 19 mmol/L (22-30); Chloride 103 mmol/L (98-107); Estimated Glomerular Filt Rate > 60; Glucose 132 mg/dL (65-110); Potassium 3.3 mmol/L (3.4-5.0); Sodium 133 mmol/L (137-145)
--- NOTE | 2022-06-20 06:11 | LDADM ---
This patient, Artemio Ching, was admitted to Labor/Delivery/Recovery 103 on 06/20/22 at 04:58. Plans for labor, pain management and were discussed with patient. Patient/family oriented to hospital policies and general routines including ID bracelet, bed and alarms, visiting hours, pain management, procedures, bathroom and other care routines, personal items, smoking policy, room service/diet and guest tray routines, infant security routines, and visiting hours. Patient/Family are encouraged to report perceived risks to care and to ask questions if they do not understand what they are told or what they should do. See OBIX for further documentation.
[2022-06-20] MEDS: LACTATED RINGERS 1,000 ML 125 ML IV CONT ×2 (06:14→11:23)
[2022-06-20 06:36] LABS: Uric Acid 5.7 mg/dL (2.5-7.5)
--- NOTE | 2022-06-20 06:41 | PM.IMHP ---
H&P: HPI History of Present Illness Date/Time: 06/20/22 06:41 Chief Complaint: Elevated blood pressures at term Narrative: patient is admitted for induction of labor at term secondary to worsening blood pressures. She is a 2 para 1 with a previous history of -induced hypertension. Her blood pressures have been remaining above high 80s to 90s and she has spilling a trace to1+ protein. She has occasional headache but no blurred vision. She is negative for group B strep. [facility] Past Medical History Medical History PIH ( induced hypertension) Family History Family History Sibling Diabetes mellitus Audra's thyroiditis Father Hypertension Heart disease Mother Narcolepsy and cataplexy Social History Social History Smoking status: Never smoker Second hand tobacco smoke exposure: No Substance use: never Has the Lack of Transportation Kept You From Medical Appointments or From Getting Medications?: No Within the Past 12 Months, Were You Worried Whether Your Food Would Run Out Before You Got Money to Buy More?: Never True What is Your Housing Situation Today?: I Have Housing Are You Worried That in the Next 2 Months, You May Not Have Your Own Housing to Live In?: No Do You Have Trouble Paying Your Heating Or Electricity Bill?: No Do You Have Trouble Paying For Medicines?: No Are You Currently Unemployed and Looking for Work?: No Highest Level of Education Completed: Bachelor's Degree Do You Have Trouble With Childcare or the Care of a Family Member?: No Gender identity (if verbalized by the patient): Female Spiritual care concerns: No Meds Home Medications and Allergies Home Medications Medication Instructions Recorded Confirmed Type vit no.95-ferrous 1 tablet PO DAILY 05/29/20 06/09/20 History fumarate 28 mg-folic acid 800 mcg tablet () labetalol 100 mg tablet 100 mg PO Q12H 7 days #14 tabs 06/09/20 Rx Allergies Allergy/AdvReac Type Severity Reaction Status Date / Time No Known Allergies Allergy Verified 06/19/22 12:31 Vital Signs Vital Signs - 24 hr 06/20/22 05:23 06/20/22 05:30 06/20/22 06:01 Pulse Rate 112 H 121 H 88 Blood Pressure 140/79 142/88 H 123/72 06/20/22 06:31 Pulse Rate 110 H Blood Pressure 135/82 Exam Const: General: cooperative, healthy appearing and comfortable Nutritional Appearance: average body habitus Orientation/consciousness: oriented to person, oriented to place and oriented to time HENMT: Head: normal to inspection Resp: Effort & Inspection: normal respiratory effort Cardio: Rate: regular rate Rhythm: regular rhythm Heart sounds: S1 normal heart sound present and S2 normal heart sound present GI: Inspection: normal to inspection ( Gravid soft uterus) Auscultation: normal bowel sounds : Speculum Exam - Vagina: normal appearance of the vagina Speculum Exam - Cervix: normal appearance of the cervix ( cervix /2. Attempted a round. FHTs reassuring) H&P: Results Labs Labs: Short CBC 06/20/22 Range/Units 05:43 WBC 8.8 (4.5-10.0) K/mm3 Hgb 10.5 L (12.0-15.0) g/dL Hct 32.0 L (37.0-47.0) % Plt Count 176 (150-375) k/mm3 BMP 06/20/22 05:43 Sodium 133 L Potassium 3.3 L Chloride 103 Carbon Dioxide 19 L BUN 7 Creatinine 0.60 L Glucose 132 H Calcium 8.7 Liver Function 06/20/22 Range/Units 05:43 Total Bilirubin 0.4 (0.2-1.3) mg/dL AST 21 (14-36) U/L ALT 17 (6-35) U/L Alkaline Phosphatase 179 H (38-126) U/L Albumin 3.5 (3.5-5.1) g/dL Assessment and Plan Assessment and plan (1) PIH ( induced hypertension): Code(s): O13.9 - Gestational [-induced] hypertension without significant proteinuria, unspecified tr
[2022-06-20 06:49] LABS: Rapid Plasma Reagin Non-Reactive (NonReactive)
--- NOTE | 2022-06-20 11:21 | WPDANESEPP ---
Anes - Eval Pre Procedure Procedure: Labor Epidural Date/Time: 06/20/22 11:21 Surgeon: Walker Preop Diagnosis: Labor Pain Pre Op Diagnosis: IOL Patient Data Age: 27 Gender: F Height: Weight: Last Vital Signs Temp 36.5 C 06/20/22 09:00 Pulse 100 06/20/22 11:18 BP 138/87 06/20/22 11:18 Pulse Ox 100 06/20/22 11:18 O2 Del Method Room Air 06/20/22 07:15 Allergies Allergy/AdvReac Type Severity Reaction Status Date / Time No Known Allergies Allergy Verified 06/19/22 12:31 Home Medications Medication Instructions Recorded Confirmed Type vit no.95-ferrous 1 tablet PO DAILY 05/29/20 06/09/20 History fumarate 28 mg-folic acid 800 mcg tablet () labetalol 100 mg tablet 100 mg PO Q12H 7 days #14 tabs 06/09/20 Rx Laboratory Tests 06/20/22 06/20/22 06/20/22 05:43 05:43 05:43 WBC 8.8 K/mm3 K/mm3 (4.5-10.0) RBC 3.94 M/mm3 L M/mm3 (4.2-5.4) Hgb 10.5 g/dL L g/dL (12.0-15.0) Hct 32.0 % L % (37.0-47.0) MCV 81.2 fl fl (80-100) MCH 26.6 pg pg (26-34) MCHC 32.8 g/dl g/dl (32-36) RDW 13.7 % % (11.5-14.5) Plt Count 176 k/mm3 k/mm3 (150-375) MPV 12.3 fl H fl (7.4-10.4) Immature Gran % (Auto) 0.8 % H % (0-0.5) Neut % (Auto) 68.8 % % (45.5-73.1) Lymph % (Auto) 20.2 % % (18.3-44.2) Bowman % (Auto) 7.7 % % (2.6-8.5) Eos % (Auto) 2.2 % % (0-4.4) Baso % (Auto) 0.3 % % (0.2-1.2) Lymph # (Auto) 1.77 K/mm3 K/mm3 (0.9-3.2) Bowman # (Auto) 0.7 K/mm3 H K/mm3 (0.1-0.6) Eos # (Auto) 0.2 K/mm3 K/mm3 (0-0.3) Baso # (Auto) 0.0 K/mm3 K/mm3 (0.0-0.1) Abs Immat Gran (auto) 0.07 K/mm3 H K/mm3 (0.00-0.031) Absolute Neuts (auto) 6.0 K/mm3 K/mm3 (1.3-6.7) Absolute Nucleated RBC 0.0 K/mm3 K/mm3 (0.0-0.012) Nucleated RBC % 0.0 % % (0.0-0.2) Sodium Potassium Chloride Carbon Dioxide Anion Gap BUN Creatinine Estim Creat Clear Calc Estimated GFR Glucose Uric Acid 5.7 mg/dL mg/dL (2.5-7.5) Calcium Total Bilirubin AST ALT Alkaline Phosphatase Total Protein Albumin RPR Non-reactive (NonReactive) Blood Type Antibody Screen 06/20/22 06/20/22 05:43 05:43 WBC RBC Hgb Hct MCV MCH MCHC RDW Plt Count MPV Immature Gran % (Auto) Neut % (Auto) Lymph % (Auto) Bowman % (Auto) Eos % (Auto) Baso % (Auto) Lymph # (Auto) Bowman # (Auto) Eos # (Auto) Baso # (Auto) Abs Immat Gran (auto) Absolute Neuts (auto) Absolute Nucleated RBC Nucleated RBC % Sodium 133 mmol/L L mmol/L (137-145) Potassium 3.3 mmol/L L mmol/L (3.4-5.0) Chloride 103 mmol/L mmol/L (98-107) Carbon Dioxide 19 mmol/L L mmol/L (22-30) Anion Gap 11 mmol/L mmol/L (8-16) BUN 7 mg/dL mg/dL (7-17) Creatinine 0.60 mg/dL L mg/dL (0.7-1.0) Estim Creat Clear Calc Not Reportable Estimated GFR > 60 (59 - ) Glucose 132 mg/dL H mg/dL (65-110) Uric Acid Calcium 8.7 mg/dL mg/dL (8.4-10.2) Total Bilirubin 0.4 mg/dL mg/dL (0.2-1.3) AST 21 U/L U/L (14-36) ALT 17 U/L U/L (6-35) Alkaline Phosphatase 179 U/L H U/L (38-126) Total Protein 6.0 g/dL L g/dL (6.3-8.2) Albumin 3.5 g/dL g/dL (3.5-5.1) RPR Blood Type O Positive Antibody Screen Ne
[2022-06-20] MEDS: SODIUM CHLORIDE 0.9% IV 300 ML 600 ML I-UTERINE (14:22)
--- NOTE | 2022-06-20 16:17 | PM.OBPNLAB ---
Pain Control Date/time seen: 06/20/22 16:17 Pain control: tolerating well and epidural Pelvic Exam Dilation (cm): 5 Effacement (%): 70 station: -2 Amniotic membrane status: Leaking Contractions Monitor mode: Internal
--- NOTE | 2022-06-20 22:23 | PM.OBPRVD ---
OB - Delivery Note Procedure Delivery date: 06/20/22 Procedure: mil Events: Gestational Hypertension Induction method: AROM Delivery augmentation: Pitocin Delivery monitor: External FHT and Internal Uterine Route of delivery: Episiotomy description: None Laceration Description: None Quantitative Blood Loss (ml): 59 Anesthesia type: Epidural Disposition: Floor [place] Baby Date of : 06/20/22 Time of : 21:59 Weeks of gestation at delivery: 37 Infant gender: Male Weight (pounds): 6 Weight (ounces): 0 position: Right Occiput Anterior Placenta delivery description: Spontaneous Cord Vessel Description: 3 Vessels score one minute: 8 score five minutes: 9
[2022-06-21] VITALS (25 sets, daily range): BP systolic 110–142; BP diastolic 54–85; PULSE 89–142; RESP 16–18; TEMP 36.2–36.8; O2SAT 97–100
[2022-06-21] MEDS: ACETAMINOPHEN 325 MG TABLET 650 MG PO ×2 (03:02→09:46)
[2022-06-21] MEDS: IBUPROFEN 600 MG TABLET PO ×2 (04:13→15:18)
[2022-06-21 05:36] LABS: Hemoglobin 10.2 g/dL (12.0-15.0)
--- NOTE | 2022-06-21 08:41 | PM.OBPNVD ---
OB - PN: Subj Subjective Date/time seen: 06/21/22 08:41 Patient comments: no complaints and pain well controlled feeding status: exclusively breast feeding OB - PN: Obj Data Labs CBC & Chem 7: 06/21/22 04:09 06/20/22 05:43 Labs: Laboratory Results - last 24 hr 06/21/22 04:09 Hgb 10.2 L Hct 31.0 L OB - PN A/P Plan day: 1 Plan: routine care Time Spent With Patient Time: Total time spent is greater than 50% in coordination of care (as documented) at patient's floor/unit and/or counseling patient: Time with patient: less than 15 minutes Exam Const: General: cooperative, healthy appearing and comfortable Nutritional Appearance: average body habitus Orientation/consciousness: oriented to person, oriented to place and oriented to time HENMT: Head: normal to inspection Resp: Effort & Inspection: normal respiratory effort GI: Inspection: normal to inspection
[2022-06-21] MEDS: MULTIVIT/MIN/PREN/FOL AC/IRON TABLET 1 TAB PO (09:47)
--- NOTE | 2022-06-21 10:21 | PC.NURSE ---
[id number] Introductions were made, then consulted with patient to assess needs related to . Mother led the conversation with her?plans to feed?her infant and the?experience so far. Resources provided for inpatient and outpatient services using a resource guide and mom/baby guide. Mother voiced understanding of information and requests assistance. Encouraging skin to skin, stimulating infants feeding cues with massage touch, talking, and helping mother recognize the early feeding cues that are visualized, then was gathered by the primary RN to take to the nursery for a Manager Regional assessment. Reported to primary RN.
--- NOTE | 2022-06-21 11:32 | PC.NURSE ---
[id number] Consulted with mother to assist with now that infant is back in the room. Skin to skin, touch and talking stimulated infant to wake to breastfeed. latched optimally to the left breast in football position. Education given to mother of how to visualize suck/swallow ratios and listen for drinking at the breast. was able to maintain latch without discomfort to mother. Nipple care reviewed with optimal latch and good positioning. Resources used to facilitate learning were used with the visual handouts, tool, mom and baby guide. Mother voiced understanding of responsive feedings, stimulating with skin to skin, hand expressed colostrum, massage touch, talking to to encourage if it has been 2 -3 hours since the start of the last , to call if does not latch or there is discomfort with . Reported to the primary RN.
--- NOTE | 2022-06-21 13:58 | WPDANLDPN2 ---
Anes-Prog Note L&D Date/Time: 06/21/22 13:58 Comfortable throughout: labor and delivery Neuraxial method: epidural Epidural/Spinal procedure site: clean & non-tender Neuro status: Neuro function grossly intact. Cardiovascular status: normal Respiratory status: normal Airway patency: baseline Mental status: baseline Post-Op hydration status: normal Vital Signs: Last Vital Signs Temp 97.3 F L 06/21/22 11:48 Pulse 89 06/21/22 11:48 Resp 16 06/21/22 11:48 BP 135/84 06/21/22 11:48 Pulse Ox 100 06/21/22 11:48 O2 Del Method Room Air 06/21/22 08:00 Pain score (VAS): 0 I/O: Intake & Output 06/20/22 06/21/22 06/21/22 23:59 07:59 15:59 Intake Total 240 Output Total 59 Balance -59 240 Post-procedural complaints: none Patient feedback: Patient satisfied with anesthetic care.
[2022-06-21] MEDS: LANOLIN (LANSINOH) 7.5 GM CREAM 1 APPLIC TOPICAL (15:20)
[2022-06-22] MEDS: IBUPROFEN 600 MG TABLET PO (03:11)
--- NOTE | 2022-06-22 05:59 | PM.DS ---
DS: Admitting Diagnosis Discharge Date 06/22/2022 Admitting Diagnosis term with gestational hypertension DS: Discharge Diagnosis Discharge Diagnosis (1) PIH ( induced hypertension): Code(s): O13.9 - Gestational [-induced] hypertension without significant proteinuria, unspecified trimester Status: Acute DS: Summary Hospital Course Reason for hospitalization: patient was admitted for induction of labor secondary to elevated blood pressures Hospital Course: patient underwent spontaneous vaginal delivery after successful induction of labor. Her blood pressures normalized she did not require blood pressure medication. She remained afebrile. She was up, voiding without difficulty, ambulating, generally without complaints. Time Spent with Patient Time attestation: Total time spent providing and/or coordinating discharge services: Exam Const: General: cooperative, healthy appearing, comfortable and well groomed Nutritional Appearance: average body habitus Orientation/consciousness: oriented to person, oriented to place and oriented to time HENMT: Head: normal to inspection Resp: Effort & Inspection: normal respiratory effort GI: Inspection: normal to inspection Discharge Plan Discharge Attending physician on discharge: Villa Trevino Discharging Clinician: Villa Trevino Patient Disposition: Home, Self-Care Activity: no shower and no straining Diet: heart healthy Wound Care Instructions: follow printed instructions Patient Instructions: Antibiotic Form Stand Alone Forms: General Discharge Information Follow-up/Referrals: Villa Trevino MD [Physician] - Discharge Medications: Continued labetalol 100 mg Tablet 100 mg PO Q12H 7 Days Qty: 14 0RF PNV cmb#95-ferrous fumarate-FA [] 28 mg iron- 800 mcg Tablet 1 tablet PO DAILY Date of admission: 06/20/22 04:58 Primary Care Provider: Matthias Lizarraga Admitting Provider: Villa Trevino Attending physician on admission: Villa Trevino Condition: Stable
--- NOTE | 2022-06-22 06:03 | PM.OBPNVD ---
OB - PN: Subj Subjective Date/time seen: 06/22/22 06:03 Patient comments: no complaints and pain well controlled baby status: doing well and nursing well OB - PN: Obj Data Labs CBC & Chem 7: 06/21/22 04:09 06/20/22 05:43 OB - PN A/P Plan day: 2 Plan: routine care, discharge home and follow up 6 weeks Time Spent With Patient Time: Total time spent is greater than 50% in coordination of care (as documented) at patient's floor/unit and/or counseling patient: Time with patient: less than 15 minutes Exam Const: General: cooperative, healthy appearing and comfortable Nutritional Appearance: average body habitus Orientation/consciousness: oriented to person, oriented to place and oriented to time Resp: Effort & Inspection: normal respiratory effort GI: Inspection: normal to inspection
[2022-06-22] MEDS: MULTIVIT/MIN/PREN/FOL AC/IRON TABLET 1 TAB PO (07:53)
[2022-06-22] MEDS: DOCUSATE SODIUM 100 MG CAPSULE PO (07:53)
[2022-06-22 08:52] VITALS: BP 138/86; PULSE 93; RESP 14; TEMP 36.7; O2SAT 100
[2022-06-22] MEDS: MEASLES,MUMPS,RUBELLA VACCINE 0.5 ML VIAL SUB-Q (11:10)
[2022-06-24 09:45] VITALS: BP 150/98; PULSE 101; RESP 20; TEMP 37.3; O2SAT 97
== END 2022-06-22 11:25 | disposition home or self-care (01) | DRG 807 ==
LOC: ANHLDR 05:08 → ANHOB2 06-21 02:31
PROVIDERS: Admitting Provider Obstetrics & Gynecology; PCP Emergency Medicine; Visit Provider Obstetrics & Gynecology
DX: O13.4 Gestational [pregnancy-induced] hypertension without significant proteinuria, complicating childbirth (principal); Z37.0 Single live birth; Z3A.37 37 weeks gestation of pregnancy; O36.8330 Maternal care for abnormalities of the fetal heart rate or rhythm, third trimester, not applicable or unspecified
CPT/HCPCS: 36415; 80053; 84550; 85014; 85018; 85025; 86592; 86850; 86900; 86901; 90710; A9270; J2795; J7030; J7120

== ENCOUNTER 2023-04-12 18:28 | Emergency (ER) | payer BC, SELFPAY ==
--- NOTE | ~2023-04-12 | XR_ITS ---
EXAMINATION: XR ankle LT min 3V DATE: 04/12/2023 20:24 INDICATION: Lateral left ankle pain and swelling post fall TECHNIQUE: Anteroposterior, oblique, mortise, and lateral views of the left ankle were obtained. COMPARISON: None. FINDINGS: Alignment is normal. No fracture. Joint spaces are well maintained. No ankle joint effusion. Soft t issue swelling about the lateral malleolus. IMPRESSION: 1. No osseous abnormality. Reviewed, dictated and finalized at location A. IMPRESSION: 1. No osseous abnormality.
--- NOTE | ~2023-04-12 | XR_ITS ---
EXAMINATION: XR foot LT min 3V DATE: 04/12/2023 19:07 INDICATION: Post traumatic left foot pain TECHNIQUE: Dorsoplantar, two oblique and lateral views of the left foot were obtained. COMPARISON: None. FINDINGS: Alignment is normal. No fracture. Joint spaces are normal. Soft tissues are unremarkable. IMPRESSION: 1. Negative left foot radiographs. Reviewed, dictated and finalized at location A.
[2023-04-12 18:34] VITALS: BP 134/93; PULSE 91; RESP 18; TEMP 36.3; O2SAT 100
[2023-04-12 19:17] VITALS: BP 148/91; PULSE 89; RESP 15; TEMP 36.9; O2SAT 98
--- NOTE | 2023-04-12 20:07 | ED.GENADULT ---
HPI - General Adult General Chief complaint: Extremity Injury, Lower Stated complaint: L FOOT INJURY Time Seen by Provider: 04/12/23 19:45 Source: patient Mode of arrival: ambulatory Limitations: no limitations History of Present Illness HPI narrative: This is a 28-year-old female who presents to the ED with chief complaint of a left foot and ankle injury occurring 2 hours ago. Patient states that she tripped over her 's shoe while walking downstairs. She states she fell down a couple of stairs. She feels like her ankle twisted/inverted. Denies any pop. She states she has had some difficulty with ambulation and has been hobbling. Reports pain in the dorsum of the left foot and lateral left ankle. Denies any numbness, weakness. Denies any further site of pain or injury. Related Data Home Medications Medication Instructions Recorded Confirmed vit no.95-ferrous 1 tablet PO DAILY 05/29/20 06/09/20 fumarate 28 mg-folic acid 800 mcg tablet () Allergies Allergy/AdvReac Type Severity Reaction Status Date / Time No Known Allergies Allergy Verified 04/12/23 18:40 Review of Systems Review of Systems: All systems as dictated in [facility] Past Medical History Medical History PIH ( induced hypertension) Family History Family History Sibling Diabetes mellitus Audra's thyroiditis Father Hypertension Heart disease Mother Narcolepsy and cataplexy Social History Social History Smoking status: Never smoker Second hand tobacco smoke exposure: No Substance use: never Lack of Transportation: No Lack of Food: Never True Current Housing: I Have Housing Concerned About Future Housing: No Difficulty Paying Gas/Electric Bills: No Difficulty Paying for Meds: No Currently Unemployed: No Education: Bachelor's Degree Difficulty w/ Childcare or Family Care: No Gender identity (if verbalized by the patient): Female Spiritual care concerns: No Exam Narrative: GENERAL: Well-appearing, well-nourished, and in no acute distress. HEAD: Normocephalic, atraumatic. EYES: PERRLA and EOMI. ENT: Nares clear, no rhinorrhea or epistaxis. Mucous membranes moist. Oropharynx without tonsillar hypertrophy exudate or other lesions. NECK: Supple. No adenopathy or masses. CHEST: No respiratory distress. Clear to auscultation. No wheezes rales or rhonchi HEART: Regular rate and rhythm. No murmur heard. Normal peripheral pulses. ABDOMEN: Soft, nontender, nondistended, normal active bowel sounds. MSK: Left lower extremity: Mild swelling throughout the left ankle. Moderate tenderness throughout the left lateral ankle and dorsum of the left foot. No bruising. No deformity. Neurovascularly intact distally. Right lower extremity: Benign SKIN: Warm, dry, no rash. NEURO: Alert and oriented x3. No focal deficits. PSYCH: Normal mood and affect. Course Vital Signs Vital signs: Vital Signs Temperature 97.3 F L 04/12/23 18:34 Pulse Rate 91 04/12/23 18:34 Respiratory Rate 18 04/12/23 18:34 Blood Pressure 134/93 H 04/12/23 18:34 Pulse Oximetry 100 04/12/23 18:34 Oxygen Delivery Room Air 04/12/23 18:34 Temperature 98.2 F 04/12/23 21:40 Pulse Rate 85 04/12/23 21:40 Respiratory Rate 15 04/12/23 21:40 Blood Pressure 139/99 H 04/12/23 21:40 Pulse Oximetry 98 04/12/23 21:40 Oxygen Delivery Room Air 04/12/23 18:34 Medical Decision Making MDM Narrative Medical decision making narrative: This is a 28-year-old female who presents to the ED with chief complaint of left foot and ankle pain after suffering a fall this evening just prior to arrival. Vitals are normal. Exam does reveal a swollen left ankle with moderate lateral tenderness at the malleolus.
[2023-04-12 21:40] VITALS: BP 139/99; PULSE 85; RESP 15; TEMP 36.8; O2SAT 98
== END 2023-04-12 21:45 | disposition home or self-care (01) ==
PROVIDERS: Emergency Provider Physician Assistant; PCP Emergency Medicine
DX: S93.402A Sprain of unspecified ligament of left ankle, initial encounter (principal); W10.9XXA Fall (on) (from) unspecified stairs and steps, initial encounter
CPT/HCPCS: 73610; 73630; 99283; J2785

== ENCOUNTER 2024-12-16 15:38 | Emergency (ER) | payer BC, SELFPAY ==
--- NOTE | ~2024-12-16 | CT_ITS ---
CT abdomen pelvis wo con Ordering provider: Sybil Hebert PA-C History: 29 years Female with . R flank, RLQ pain, N/V, hematuria . Comparison: None. Technique: CT abdomen and pelvis without IV and without oral contrast. Automated exposure control and iterative reconstruction technique were employed. The dose-length product was 342.89 mGy-cm. Findings: Prominent opacity in the right breast. Ultrasound evaluation advised. VISUALIZED LOWER CHEST: Dependent atelectatic changes. UPPER ABDOMINAL ORGANS: Liver: Normal. Gallbladder: Normal. Spleen: Normal. Stomach/duodenum: Normal. Pancreas: Normal. Adrenals: Normal. Kidneys: Highly suggestive stone in the right lower ureter measuring 5 mm. Right hydroureter and hydr onephrotic changes are noted. Bilateral calcifications in the papillary area of both kidneys with pos sible tiny stones.. Small soft tissue density in the right kidney most likely small cysts. PELVIC ORGANS: The bladder is normal. Uterus is normal. BOWEL AND MESENTERY: Colon: No evidence of diverticulitis.. Normal appendix. Small Bowel: Normal. No obstruction. Peritoneum/mesentery: No free air or free fluid. No mesenteric lymphadenopathy. RETROPERITONEUM: Normal aorta. No retroperitoneal lymphadenopathy. MUSCULOSKELETAL: Superficial soft tissues: The superficial soft tissues are normal. Bones: Normal spine. IMPRESSION: Possible stone in the right lower ureter with right hydronephrotic changes. Bilateral kidney calcifications suggestive of tiny stones with papillary calcifications. No evidence of appendicitis, diverticulitis or intestinal obstruction. Small right breast density. Ultrasound evaluation advised. Reviewed, dictated and finalized at location A. IMPRESSION: Possible stone in the right lower ureter with right hydronephrotic changes. Bilateral kidney calcifications suggestive of tiny stones with papillary calcif ications. No evidence of appendicitis, diverticulitis or intestinal obstruction. Small right breast density. Ultrasound evaluation advised.
[2024-12-16 15:45] VITALS: BP 178/116; PULSE 72; RESP 16; TEMP 36.7; O2SAT 100
--- OUTSIDE RECORDS SUMMARY | 2024-12-16 15:51 | XMS_ITS | Referral Summary ---
Author Organization [facility] Address [address] [place] [address] Care Team Providers Care Nanosystems Engineer Name Role Phone Ananth Newsome Primary Care Provider [phone] Allergies No known active allergies Medications sulfamethoxazole -trimethoprim (BACTRIM DS) 800-160 mg per tablet TAKE 1 TABLET BY MOUTH 2 TIMES PER DAY FOR 7 DAYS 06/10/2024 Active escitalopram (LEXAPRO) 10 mg tablet Take 1 tablet (10 mg total) by mouth daily 30 tablet 11 06/17/2024 Active Active Problems No known active problems Immunizations Immunization Administration Dates Next Due Influenza, Unspecified 06/17/2024(Deferr ed: Patient Refused),10/19/2023(Deferred: Patient Refused) MMR 06/22/2022 Social History Tobacco Use Types Packs/Day Years Used Date Smoking Tobacco: Never Passive Smoke Exposure: Never Smokeless Tobacco: Never Tobacco Cessation:Counseling Given: Not Answered AUDIT-C Answer Date Recorded Q1: How often do you have a drink containing alcohol? Never 09/02/2022 Q2: How many drinks containi ng alcohol do you have on a typical day when you are drinking? 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 Gender Identity Not on file Sexual Orientation Not on file Last Filed Vital Signs Vital Sign Reading Time Taken Comments Blood Pressure 132/86 06/17/2024 10:50 AM CDT Pulse 91 06/17/2024 10:50 AM CDT Temperature - - Respiratory Rate 18 06/17/2024 10:50 AM CDT Oxygen Saturation 98% 06/17/2024 10:50 AM CDT Inhaled Oxygen Concentration - - Weight 76.7 kg (169 lb) 06/17/2024 10:50 AM CDT Height 157.5 cm (5' 2 ) 06/17/2024 10:50 AM CDT Body Mass Index 30.91 06/17/2024 10:50 AM CDT Plan of Treatment Not on file [place] Care Teams Nanosystems Engineer Relationship Specialty Start Date End Date Ananth Newsome PA [address] [id number] PCP - General Family Medicine 06/17/24
--- OUTSIDE RECORDS SUMMARY | 2024-12-16 15:51 | XMS_ITS | Clinical Summary ---
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 Gender Identity Not on file Sexual Orientation Not on file Plan of Treatment Health Maintenance Due Date Last Done Comments Hepatitis C Virus (HCV) Screening 1995 TdaP Immunization 1995 Hepatitis B Immunization (1 of 3 - 19+ 3-dose series) 2014 Pap Smear 2016 Influenza Immunization (#1) 2024 SARS-COV-2 Immunization ( season) 2024 Respiratory Syncytial Virus (RSV) Immunization (Adult) (1 - 1-dose 75+ series) 2070 Meningococcal Immunization (ACWY) Aged Out No longer eligible based on patient's age to complete this topic Pneumococcal Immunization Combined Aged Out No longer eligible based on patient's age to complete this topic Rotavirus Immunization Aged Out No lo nger eligible based on patient's age to complete this topic
--- OUTSIDE RECORDS SUMMARY | 2024-12-16 15:51 | XMS_ITS | Clinical Summary ---
Author Organization [facility] Building [facility] Address [address] [place] [address] Care Team Providers Care Reed Press Feeder Name Role Phone Ananth Newsome Primary Care Provider [phone] [phone] Allergies No known active allergies Medications sulfamethoxazole [...] ed: Patient Refused),10/19/2023(Deferred: Patient Refused) MMR 06/22/2022 Surgical History Surgery Date Site/Laterality Comments TONSILLECTOMY AND ADENOIDECTOMY Medical History Medical History Date Comments Hypertension Anxiety Arm fracture, right 2004 L4 vertebral fracture (HCC) 2010 Preeclampsia Syncope 06/10/2024 Family History Medical History Relation Name Comments Heart disease Father Hypertension Father Hypertension Mother Narcolepsy Mother cataplexy Mother narcolepsy with cataplexy Mother Arthritis Other Clotting disorder Other Diabetes Other Heart disease Other Hypertension Other Stroke Other Diabetes Sister x 5 Audra's thyroiditis Sister x 5 Relation Name Status Comments Father Alive Mother Alive Other Sister x 5 Alive Social History Tobacco Use Types Packs/Day Years [...] on file 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 Gender Identity Not on file Sexual Orientation Not on file Obstetrics History Last Filed Vital Signs Vital Sign Reading [...] 06/17/2024 10:50 AM CDT Plan of Treatment Health Maintenance Due Date Last Done Comments Cervical Cancer Screening 1995 Hepatitis C Screening 1995 DTaP/Tdap/Td Vaccine (1 - Tdap) 2006 Varicella Vaccines (1 of 2 - 13+ 2-dose series) 2008 Hepatitis B Screening 2013 Regular Well Visit/Exam 18-64 2013 Influenza Vaccine (#1) 2025 Postp oned from 04/18/2024 (Patient declined, but will receive in the future) Depression Screening 06/17/2025 06/17/2024, 06/17/2024 HPV Vaccines Aged Out No longer eligi ble based on patient's age to complete this topic Pneumococcal vaccine <65 Aged Out No longer eligible based on patient's age to complete this topic Insurance [employer] [place] Member Subscriber Plan / Payer (Ef fective 2021-Present) Name:Brynn Artemio Relation to Subscriber:Spouse Name:JEY JONES Date of :1991 (Home) Address: [address] [place] [id number] Payer ID:[id number] (NAIC) Type: OTHER Address: [address] [place] [phone] [employer] [place] Member Subscriber Plan / Payer (Ef fective 2021-Present) Name:Brynn Artemio Relation to Subscriber:Spouse Name:JEY JONES Date of :1991 (Home) Address: [address] [place] [id number] Payer ID:[id number] (NAIC) Type: OTHER Address: [address] [place] [id number] Care Teams Reed Press Feeder Relationship Specialty Start Date End Date Ananth Newsome PA [address] [place] [address] PCP - General Family Medicine 06/17/24
--- OUTSIDE RECORDS SUMMARY | 2024-12-16 15:51 | XMS_ITS | Continuity of Care Document ---
Author Organization [facility] Address [address] [place] [address] Phone Care Team Providers Care Religious Studies Professor Name Role Phone Matthias Lizarraga MD Unavailable Unavailable Allergies, Adverse Reactions, Alerts Substance Reaction Status Criticality No Known Allergies Active No Inform ation Medications Medication Instructions Dosage Effective Dates (start - stop) Status Comments omeprazole 20 mg capsule,delayed release take 1 capsule by oral route every day before a meal 20 MG - Active phentermine 37.5 mg capsule take 1 capsule by oral route every day before breakfast 37.5 MG - Active Procedures Procedure Date OFFICE/OUTPATIENT VISIT, EST OFFICE/OUTPATIENT VISIT, EST OFFICE/OUTPATIENT VISIT, EST PREV VISIT, NEW, AGE 18-39 OFFICE/OUTPATIENT VISIT, NEW Advance Directives Directive Yes / No Effective Date File Name No Information Encounters Encounter Description Practice Location Reason(s) For Visit Diagnoses Date Provider Providers Copied on Encounter [facility], [address] [place], [id number], [place] tel:[phone] [facility] No Information 2 Zia Rizzo. [address] [place], [place], [id number] , [place]. tel:[phone] OFFICE/OUTPA TIENT VISIT, EST [facility], [address] [place] [id number], [place] tel:[phone] [facility] Medicine weight1 (chief complaint) fatigue1 (chief complaint) dysphagia1 (chief complaint) murmur1 (chief complaint) Abnormal weight lossGoiterCardiac murmurDysphagiaGERD w/o esophagitisFatigueO ther abnormality of red blood cells Oct- 2 Zia Rodriguez [address], [place], [place], [id number] , [place]. tel:[phone] OFFICE/OUTPA TIENT VISIT, [facility], [address], [place], [place], [address], [place] tel:[phone] [facility] thyromegal y1 (chief complaint) RBC (chief complaint) LFT (chief complaint) irregular1 (chief complaint) GoiterOther abnormality of red blood cellsLiver diseaseFatigueIrreg ular periodAbnormal weight gain 1 Zia Rodriguez [address], [place], [place], [address] , [place]. tel:[phone] OFFICE/OUTPA TIENT VISIT, [facility], [address], [place], [place], [address], [place] tel:[phone] [facility] thyroid1 (chief complaint) LFT (chief complaint) HLP (chief complaint) weight1 (chief complaint) RBC (chief complaint) Liver diseaseDisorder of thyroid, unspecifiedHyperlip idemiaAbnormal weight gainOther abnormality of red blood cells 1 Zia Rodriguez [address], [place], [place], [address] , [place]. tel:[phone] PREV VISIT, NEW, AGE 18-39 [facility], [address] [place], [address], [place] tel:[phone] [facility] physical (chief complaint) Encounter for general adult medical exam w abnormal findingsHeadacheEss ential (primary) hypertensionAmenorr heaPain in right kneeFamily history of other endocrine disease 1 Zia Rodriguez [address], [place], [place], [address] , [place]. tel:[phone] Family History Family Member Type Diagnosis Age At Onset Sister Problem gaviota Mother Problem unknown Father Problem Pre-DM Father Problem heart disease of unknown type around 50, but not sure what Sister Problem ? sleep disorder but not chely e Payers Payer name Insurance type Covered constitution party ID Authoriza tiruthy(s) No Information Social History Type Description Quantity Date Captured Comments Alcohol Use Details Unknown Caffeine Use Details Unknown Tobacco Use Status No Information Smoking Status No Information Sex Female Chief Complaint And Reason For Visit No Information Plan Of Treatment Date Type Action Status Referral Ordered: Otolaryngology (related to Dysphagia) ordered Referral Ordered: Referrals: Otolaryngology. Evaluate and treat ordered Referral Ordered: DOPPLER ECHO EXAM, HEART ordered Referral Ordered: Lon Kumar -[facility] : Internal Medicine : Endocrinology, Diabetes & Metabolism (related to Goiter) ordered Referral Ordered: SLEEP STUDY, ATTENDED ordered Referral Referred To: Lon Kumar [id number] [facility]
[address], [place] [id number] Ordered: Referrals: Allopathic & Osteopathic Physicians : Internal Medicine : Endocrinology, Diabetes & Metabolism. Lon Kumar. Evaluate and treat ordered Referral Ordered: US THYROID ordered History Of Present Illness Encounter Date Complaint History Of Prese nt Illness dysphagia1 Pt notices mild dysphagia especially around throat area for two months. Pt denies any nausea, vomiting, loss of appetite, early satiety. change of bowel, blood in stool. Pt does have mild thyromegaly. Pt also has daily GERD, especially if she eats sour stuff. Pt states that her gerd is worse at night weight1 Pt took phenterm ine 4-5 months ago for 30 days and she really got a jump start on her meri loss Pt tolerated phentermine well. Pt has been able to keep her meri down but she notices that it is gaining back somewhat Pt denies any appetite loss, nausea, vomiting, GERd, change of bowel, blood in stool, etc Mar-21-2022 murmur1 Pt has mild syst olic murmur. Pt denies any chest pain or sob or edema fatigue1 Pt states that s he has not felt much fatigue but she still has some difficulty with breathing at night and she does snore. Pt thinks that it is possibly due to thyromegaly. Pt denies any orthopnea or PND or edema. Pt did not do sleep study thyromegaly1 Pt has mild thyr omegaly. Pt denies any dysphagia or sore throat. Pt notices mild trouble with breathing at night and she does snore. Pt feels fatigue in the morning and sometimes dizziness in the morning Pt denies any headache . Pt sometimes feel tightness around thyroid area. LFT Pt has history o f mildly elevated LFT .Pt denies any abd pain or jaundice. Her repeat LFT is ok. No viral hepatitis. RBC Pt has high RBC without polycythemia. Her iron and ferritin are ok. Pt denies any family history of bone marrow disease or leukopenia irregular1 Pt has irregular period. Pt denies any abd or pelvic pain or vaginal discharge .Pt has chronic irregular period for long time. Pt has normal testosterone level. Pt denies any dysmenorrhea or menorrhagia weight1 Pt has difficult y losing weight despite diet and exercise. RBC Pt has slightly high RBC without polycythemia. Her iron and ferritin level ok HLP Pt has mild high tg Pt is not on any diet LFT Pt has mild high LFT Pt denies any abd pain or jaundice. Pt rarely drinks alcohol. thyroid1 Pt has high TPO her TSH is ok Pt has family history of gaviota disease. Pt denies any dysphagia or neck pain physical Pt needs annual physical Pt states that her bp has been borderline high for close to 12 months. Pt had induced HTN but her bp has been persistently high since delivery 8 months ago. Pt does have mild headache and dizzy when her bp is borderline high. Pt states that her bp is between 130-150/95 at home Pt typically feels slightly headache and dizzy when her bp is elevated. Pt denies any fatigue or any chest pain. Pt describes mild nausea and hot sweaty feeling during headache. Pt describes something whooshing in her brain but no throbbing or sharp headache. Pt feels above episodes 4-5 times per weeks. Pt denies any trigger factor. Pt denies any head injury or waking up at night with headache. Pt denies any sob. Pt c/o right knee pain for last month. Pt denies any injury. Pt denies any swelling or redness or warmth. Pt feels mild right dull ache right knee on and off, worse with activity Pt denies any injury. Pt has history of remote right knee pain back in high school. P has irregular period. pt has history of amenorrhea and she has to be hormonally induced to get . Pt denies any other complaints. Instructions Date Instruction Additional Infor ramon No Information Assessments Type Assessment Date No Information
[2024-12-16 16:11] LABS: Basophils Absolute Auto 0.1 K/mm3 (0.0-0.1); Basophils Percent Auto 0.4 % (0.2-1.2); Eosinophils Percent Auto 0.3 % (0-4.4); Hematocrit 43.2 % (37.0-47.0); Hemoglobin 13.8 g/dL (12.0-15.0); Immature Granulocyte Absolute 0.05 K/mm3 (0.00-0.031); Immature Granulocyte Percent A 0.4 % (0-0.5); Lymphocytes Absolute Auto 1.36 K/mm3 (0.9-3.2); Lymphocytes Percent Auto 10.9 % (18.3-44.2); Mean Corpuscular HGB Conc 31.9 g/dl (32-36); Mean Corpuscular Hemoglobin 27.2 pg (26-34); Mean Platelet Volume 11.7 fl (7.4-10.4); Monocytes Absolute Auto 0.6 K/mm3 (0.1-0.6); Neutrophils Absolute Auto 10.4 K/mm3 (1.3-6.7); Platelet Count Result 239 k/mm3 (150-375); Red Blood Count 5.08 M/mm3 (4.2-5.4); Red Cell Distribution Width 13.1 % (11.5-14.5); White Blood Count 12.5 K/mm3 (4.5-10.0)
[2024-12-16 16:21] LABS: Anion Gap 9 mmol/L (4-12); Blood Urea Nitrogen 14 mg/dL (7-17); Calcium 9.1 mg/dL (8.4-10.2); Carbon Dioxide 26 mmol/L (22-30); Chloride 99 mmol/L (98-107); Estimated CRCL calculation 80 ml/min; Estimated Glomerular Filt Rate > 60; Glucose 98 mg/dL (65-110); Potassium 3.6 mmol/L (3.4-5.0); Sodium 134 mmol/L (137-145)
--- NOTE | 2024-12-16 17:15 | ED_ITS ---
HPI - Female Genitourinary General Chief complaint: Urogenital-Female Stated complaint: Poss kidney stone-blood in urine Time Seen by Provider: 12/16/24 15:45 Source: patient Mode of arrival: ambulatory Limitations: no limitations History of Present Illness HPI Narrative: Patient is a 29-year-old female who presents the ED with report of hematuria and right flank pain. Patient reports she has been dealing with blood in her urine for the past 2 weeks. She denies dysuria or urinary frequency. Yesterday into today, she began having pain throughout her right flank region, right lower quadrant. She was referred to the ED for a possible kidney stone. She denies history of previous kidney stones. She reports nausea and vomiting associated with the pain. Denies fevers. Related Data Home Medications ?Medication ?Instructions ?Recorded ?Confirmed ?Last Taken ?Type vit no.95-ferrous 1 tablet PO DAILY 05/29/20 06/09/20 Unknown History fumarate 28 mg-folic acid 800 mcg tablet () Allergies Allergy/AdvReac Type Severity Reaction Status Date / Time No Known Allergies Allergy Verified 12/16/24 15:40 Review of Systems 2 Review of Systems: All systems reviewed & are unremarkable except as noted in HPI. All systems reviewed & are unremarkable except as noted in HPI and below PMFSH Past Medical History Medical History PIH ( induced hypertension) Family History Family History Sibling Diabetes mellitus Audra's thyroiditis Father Hypertension Heart disease Mother Narcolepsy and cataplexy Social History Social History Smoking status: Never smoker Second hand tobacco smoke exposure: No Substance use: never Lack of Transportation: No Lack of Food: Never True Current Housing: I Have Housing Concerned About Future Housing: No Difficulty Paying Gas/Electric Bills: No Difficulty Paying for Meds: No Currently Unemployed: No Education: Bachelor's Degree Difficulty w/ Childcare or Family Care: No Gender identity (if verbalized by the patient): Female Spiritual care concerns: No Exam 2 Narrative: GENERAL: Mildly uncomfortable appearing, well-nourished, non-toxic, in no acute distress. HEAD: Normocephalic, atraumatic. RESPIRATORY: Airway patent, respirations nonlabored. Clear to auscultation bilaterally, no rales, rhonchi, wheezing. CARDIOVASCULAR: Regular rate and rhythm without murmurs, rubs, or gallops. ABDOMINAL: Soft, TTP in RLQ, R lateral abdomen, R CVA region, nondistended. Normoactive BS. MUSCULOSKELETAL: Moves all extremities. No gross deformities. SKIN: Warm, dry, normal color. NEURO: A&O X3. Speech clear. PSYCHIATRIC: Appropriate mood and affect. Normal interaction. Course Vital Signs Vital signs: Vital Signs Temperature 98.1 F 12/16/24 15:45 Pulse Rate 72 12/16/24 15:45 Respiratory Rate 16 12/16/24 15:45 Blood Pressure 178/116 H 12/16/24 15:45 Pulse Oximetry 100 12/16/24 15:45 Oxygen Delivery Room Air 12/16/24 15:45 Temperature 98.1 F 12/16/24 15:45 Pulse Rate 72 12/16/24 15:45 Respiratory Rate 16 12/16/24 15:45 Blood Pressure 178/116 H 12/16/24 15:45 Pulse Oximetry 100 12/16/24 15:45 Oxygen Delivery Room Air 12/16/24 15:45 MDM - Female Genitourinary MDM Narrative Medical decision making narrative: Patient presented to ED with hematuria, right lower quadrant, R flank pain, N/V. Sent to r/o kidney stone. Denies previous hx of stones. VSS upon arrival. Patient mildly uncomfortable appearing. Given pain control. CBC without the count of 12.5. Hemoconcentration noted. Patient did report vomiting prior to evaluation. Possibly reactive. Given fluids. CMP is unremarkable. Stable kidney function. UA with trace ketones, greater than 100 RBC, no signs of infection. Urine preg negative. CT abd/pelvis obtained highly suggestive 5 mm stone in right distal ureter. Mild right hydronephrotic changes. This is consistent with exam and clinical picture. Patient is resting comfortably on re-evaluation. Discussed lab and imaging findings. Feel she is safe for discharge home with further outpatient management. Will discharge w/ pain medication, nausea medication, flomax, refer to Urology. Discussed very strict return precautions. Patient voiced understanding. She feels comfortable discharge home. Discharged in stable condition. CT scan did show a density of the right breast. I updated patient on this. Advised she will need to have ultrasound for further evaluation of breast. Outpatient order written for right breast ultrasound. Medical Records Attestation: I reviewed the patient's medical records. Lab Data Attestation: I reviewed the patient's lab results. 12/16/24 16:04 12/16/24 16:04 Labs: Lab Results 12/16/24 12/16/24 12/16/24 Range/Units 16:04 17:00 17:35 WBC 12.5 H (4.5-10.0) K/mm3 RBC 5.08 (4.2-5.4) M/mm3 Hgb 13.8 D (12.0-15.0) g/dL Hct 43.2 (37.0-47.0) % MCV 85.0 (80-100) fl MCH 27.2 (26-34) pg MCHC 31.9 L (32-36) g/dl RDW 13.1 (11.5-14.5) % Plt Count 239 (150-375) k/mm3 MPV 11.7 H (7.4-10.4) fl Immature Gran % (Auto) 0.4 (0-0.5) % Neut % (Auto) 83.0 H (45.5-73.1) % Lymph % (Auto) 10.9 L (18.3-44.2) % [place] % (Auto) 5.0 (2.6-8.5) % Eos % (Auto) 0.3 (0-4.4) % Baso % (Auto) 0.4 (0.2-1.2) % Lymph # (Auto) 1.36 (0.9-3.2) K/mm3 [place] # (Auto) 0.6 (0.1-0.6) K/mm3 Eos # (Auto) 0.0 (0-0.3) K/mm3 Baso # (Auto) 0.1 (0.0-0.1) K/mm3 Abs Immat Gran (auto) 0.05 H (0.00-0.031) K/mm3 Absolute Neuts (auto) 10.4 H (1.3-6.7) K/mm3 Absolute Nucleated RBC 0.000 (0.0-0.012) K/mm3 Nucleated RBC % 0.0 (0.0-0.2) % Sodium 134 L (137-145) mmol/L Potassium 3.6 (3.4-5.0) mmol/L Chloride 99 (98-107) mmol/L Carbon Dioxide 26 (22-30) mmol/L Anion Gap 9 (4-12) mmol/L BUN 14 D (7-17) mg/dL Creatinine 0.85 (0.7-1.0) mg/dL Estim Creat Clear Calc 80 ml/min Estimated GFR > 60 (59 - ) Glucose 98 (65-110) mg/dL Calcium 9.1 (8.4-10.2) mg/dL Urine Color Yellow (Yellow) Urine Appearance Cloudy H (Clear) Urine pH 7.5 (5.0-9.0) Ur Specific [place] 1.012 (1.001-1.035) Urine Protein Trace (Negative) mg/dL Urine Glucose (UA) Negative (Negative) mg/dL Urine Ketones Trace H (Negative) mg/dL Ur Blood (Man) 2+ H (Negative) Urine Nitrate Negative (Negative) Urine Bilirubin Negative (Negative) Urine Urobilinogen 0.2 (<2.0) mg/dL Leukocyte Esterase Rfl Negative (Negative) ED/UL Urine RBC >100 H (0-2) /hpf Urine WBC 0-5 (0-3) /hpf Ur Squamous Epith Cells None seen (Few) /hpf Urine Bacteria None seen /hpf Urine Casts 0-2 POC Urine HCG, Qual Negative (Negative) Imaging Data Attestation: I personally reviewed and interpreted this imaging study as follows: Radiologist's impression: ITS Impressions Abdomen/Pelvis CT 12/16/24 18:32 IMPRESSION: Possible stone in the right lower ureter with right hydronephrotic changes. Bilateral kidney calcifications suggestive of tiny stones with papillary calcifications. No evidence of appendicitis, diverticulitis or intestinal obstruction. Small right breast density. Ultrasound evaluation advised. Discharge Plan Discharge Clinical Impression: Calculus of distal right ureter, Breast density Hematuria Qualifiers: Hematuria type: gross Qualified Code(s): R31.0 - Gross hematuria Patient Disposition: Home Condition: Stable Instructions: Antibiotic Form, Kidney Stones (ED), Hematuria (ED) Additional Instructions: Take Flomax daily as prescribed. Continue Tylenol and Ibuprofen as needed for pain. Oxycodone as needed for more severe pain. Zofran for nausea. Stay well hydrated. Strain urine to collect stone. Follow up with Urology for further evaluation and management of stone. Call office to make appointment. Return to the ED if you experience worsening or severe pain, unable to keep down food/drink, fevers, uncontrollable nausea/vomiting, unable to urinate, or any other symptoms of concern. Your CT scan showed a density to your right breast. You will need to obtain ultrasound to further evaluate this. Take order with you to imaging center. Patient Language: Setswana Prescriptions: New ondansetron 4 mg tablet,disintegrating 4 mg PO Q8H PRN (Reason: nausea and vomiting) Qty: 15 0RF oxycodone 5 mg tablet 5 mg PO Q6H PRN (Reason: pain) Qty: 15 0RF tamsulosin [Flomax] 0.4 mg capsule 0.4 mg PO DAILY Qty: 7 0RF No Action labetalol 100 mg Tablet 100 mg PO Q12H 7 Days Qty: 14 0RF PNV cmb#95-ferrous fumarate-FA [] 28 mg iron- 800 mcg Tablet 1 tablet PO DAILY Other Ambulatory Orders: US breast RT complete (Routine) Timeframe: 1 Week Location: Determined by Patient Ordered By: Sybil Hebert Follow-up/Referrals: Charanjit Rosenberg MD [Physician] - (UROLOGY) Matthias Lizarraga MD [Primary Care Provider] - Time of Disposition: 19:02
[2024-12-16] MEDS: SODIUM CHLORIDE 0.9% IV 1,000 ML 999 ML IV CONT (17:32)
[2024-12-16] MEDS: ONDANSETRON INJ 4 MG/2 ML VIAL IV PUSH (17:33)
[2024-12-16] MEDS: MORPHINE SULFATE (*CRX) 4 MG/ML INJ IV PUSH (17:34)
[2024-12-16 17:47] LABS: Add Urine Microscopic? YES; Appearance Urine Cloudy (Clear); Bacteria Urine None Seen /hpf; Bilirubin Urine Negative (Negative); Blood Urine 2+ (Negative); Color Urine Yellow (Yellow); Glucose Urine UA Negative (Negative); Ketones Urine Trace mg/dL (Negative); Leukocyte Esterase Ur Negative LEU/UL (Negative); Nitrate Urine Negative (Negative); Non Pathogenic Casts 0-2; Protein Urine Trace mg/dL (Negative); RBC Urine >100 /hpf (0-2); Specific Grav Ur 1.012 (1.001-1.035); Squamous Epithelial Cell Urine None Seen /hpf (Few); Urobilinogen Urine 0.2 mg/dL (<2.0); WBC Urine 0-5 /hpf (0-3); pH Urine 7.5 (5.0-9.0)
--- OUTSIDE RECORDS SUMMARY | 2024-12-16 17:48 | XMS_ITS | Clinical Summary ---
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 Gender Identity Not on file Sexual Orientation [...] patient's age to complete this topic Insurance [employer] [place] Subscriber Plan / Payer (Ef fective 2021-Present) Name:Brynn Artemio Relation to Subscriber:Spouse Name:JEY JONES Date of :1991 (Home) Address: [address] [place] [address] Payer ID:[id number] (NAIC) Type: OTHER Address: [address] [place] [phone] [employer] [place] Member Subscriber Plan / Payer (Ef fective 2021-Present) Name:Brynn Artemio Relation to Subscriber:Spouse Name:JEY JONES Date of :1991 (Home) Address: [address] [place] [id number] Payer ID:[id number] (NAIC) Type: OTHER Address: [address] [place] [phone] Care Teams Avionics Manager Relationship Specialty Start Date End Date Ananth Newsome PA [address] [place] [address] PCP - General Family Medicine 06/17/24
--- OUTSIDE RECORDS SUMMARY | 2024-12-16 17:48 | XMS_ITS | Referral Summary ---
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
--- OUTSIDE RECORDS SUMMARY | 2024-12-16 17:48 | XMS_ITS | Continuity of Care Document ---
Author Organization [facility] Address [address] [facility] [place] [address] Phone Care Team Providers Care Wildlife Conservation Professor Name Role Phone Matthias Lizarraga MD Unavailable Unavailable Allergies, Adverse Reactions, Alerts Substance Reaction Status Criticality No Known Allergies Active No Inform ation Medications Medication Instructions Dosage Effective Dates (start - stop) Status Comments phentermine 37.5 mg capsule take 1 capsule by oral route every day before breakfast 37.5 MG - Active omeprazole 20 mg capsule,delayed release take 1 capsule by oral route every day before a meal 20 MG - Active Procedures Procedure Date OFFICE/OUTPATIENT VISIT, EST OFFICE/OUTPATIENT VISIT, EST OFFICE/OUTPATIENT VISIT, EST PREV VISIT, NEW, AGE 18-39 OFFICE/OUTPATIENT VISIT, NEW Advance Directives Directive Yes / No Effective Date File Name No Information Encounters Encounter Description Practice Location Reason(s) For Visit Diagnoses Date Provider Providers Copied on Encounter [facility], [address], [address], [place] tel:[phone] [facility] No Information 2 Zia Rizzo. [address], [place], [address] , [place]. tel:[phone] OFFICE/OUTPA TIENT VISIT, EST [facility], [address] [place], [address], [place] tel:[phone] [facility] Medicine weight1 (chief complaint) fatigue1 (chief complaint) dysphagia1 (chief complaint) murmur1 (chief complaint) Abnormal weight lossGoiterCardiac murmurDysphagiaGERD w/o esophagitisFatigueO ther abnormality of red blood cells Oct- 2 Zia Rodriguez [address], [place], [place], [address] , [place]. tel:[phone] OFFICE/OUTPA TIENT VISIT, [facility], [address], [place], [place], [address], [place] tel:[phone] [facility] thyromegal y1 (chief complaint) RBC (chief complaint) LFT (chief complaint) irregular1 (chief complaint) GoiterOther abnormality of red blood cellsLiver diseaseFatigueIrreg ular periodAbnormal weight gain 1 Zia Rodriguez [address], [place], [place], [address] , [place]. tel:[phone] OFFICE/OUTPA TIENT VISIT, [facility], [address], [place], [place], [address], [place] tel:[phone] [facility] thyroid1 (chief complaint) LFT (chief complaint) HLP (chief complaint) weight1 (chief complaint) RBC (chief complaint) Liver diseaseDisorder of thyroid, unspecifiedHyperlip idemiaAbnormal weight gainOther abnormality of red blood cells 1 Zia Rodriguez [address], [place], [place], [address] , [place]. tel:[phone] PREV VISIT, NEW, AGE 18-39 [facility], [address] [place] [place], [address], [place] tel:[phone] [facility] physical (chief complaint) Encounter for general adult medical exam w abnormal findingsHeadacheEss ential (primary) hypertensionAmenorr heaPain in right kneeFamily history of other endocrine disease 1 Zia Rodriguez [address], [place], [place], [address] , [place]. tel:[phone] Family History Family Member Type Diagnosis Age At Onset Sister Problem gaviota Mother Problem unknown Father Problem Pre-DM Father Problem heart disease of unknown type around 50, but not sure what Sister Problem ? sleep disorder but not chely e Payers Payer name Insurance type Covered green party ID Authoriza tiruthy(s) No Information Social [...] ATTENDED ordered Referral Referred To: Lon Kumar [id number] [facility]
[address], [place] [id number] Ordered: Referrals: Allopathic & Osteopathic Physicians : Internal Medicine : Endocrinology, Diabetes & Metabolism. Lon Kumar. Evaluate and treat ordered Referral Ordered: US THYROID ordered History Of Present Illness Encounter Date Complaint History Of Prese nt Illness weight1 Pt took phenterm ine 4-5 months ago for 30 days and she really got a jump start on her meri loss Pt tolerated phentermine well. Pt has been able to keep her meri down but she notices that it is gaining back somewhat Pt denies any appetite loss, nausea, vomiting, GERd, change of bowel, blood in stool, etc dysphagia1 Pt notices mild dysphagia especially around throat area for two months. Pt denies any nausea, vomiting, loss of appetite, early satiety. change of bowel, blood in stool. Pt does have mild thyromegaly. Pt also has daily GERD, especially if she eats sour stuff. Pt states that her gerd is worse at night Mar-21-2022 fatigue1 Pt states that s he has not felt much fatigue but she still has some difficulty with breathing at night and she does snore. Pt thinks that it is possibly due to thyromegaly. Pt denies any orthopnea or PND or edema. Pt did not do sleep study murmur1 Pt has mild syst olic murmur. Pt denies any chest pain or sob or edema irregular1 Pt has irregular period. Pt denies any abd or pelvic pain or vaginal discharge .Pt has chronic irregular period for long time. Pt has normal testosterone level. Pt denies any dysmenorrhea or menorrhagia RBC Pt has high RBC without polycythemia. Her iron and ferritin are ok. Pt denies any family history of bone marrow disease or leukopenia LFT Pt has history o f mildly elevated LFT .Pt denies any abd pain or jaundice. Her repeat LFT is ok. No viral hepatitis. thyromegaly1 Pt has mild thyr omegaly. Pt denies any dysphagia or sore throat. Pt notices mild trouble with breathing at night and she does snore. Pt feels fatigue in the morning and sometimes dizziness in the morning Pt denies any headache . Pt sometimes feel tightness around thyroid area. RBC Pt has slightly high RBC without polycythemia. Her iron and ferritin level ok thyroid1 Pt has high TPO her TSH is ok Pt has family history of gaviota disease. Pt denies any dysphagia or neck pain LFT Pt has mild high LFT Pt denies any abd pain or jaundice. Pt rarely drinks alcohol. HLP Pt has mild high tg Pt is not on any diet weight1 Pt has difficult y losing weight despite diet and exercise. physical Pt needs annual physical Pt states [...]
--- OUTSIDE RECORDS SUMMARY | 2024-12-16 17:48 | XMS_ITS | Clinical Summary ---
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
[2024-12-16 18:03] LABS: BEDSIDEPREGUCG Negative (Negative)
[2024-12-16] MEDS: HYDROcodone/acetaminophen (*CRX) 5-325 MG TABLET 1 TAB PO (19:14)
[2024-12-16] MEDS: TAMSULOSIN HCL 0.4 MG CAPSULE PO (19:14)
[2024-12-16] MEDS: KETOROLAC 30 MG/ML VIAL (*BKC) IV PUSH (19:14)
[2024-12-16 19:27] VITALS: BP 152/98; PULSE 66; RESP 15; O2SAT 100
== END 2024-12-16 19:29 | disposition home or self-care (01) ==
PROVIDERS: Emergency Provider Physician Assistant; PCP Emergency Medicine
DX: N20.1 Calculus of ureter (principal); R31.0 Gross hematuria; R92.30 Dense breasts, unspecified
CPT/HCPCS: 36415; 74176; 80048; 81001; 81025; 85025; 96361; 96374; 96375; 99284; A9270; J1885; J2270; J2405; J7030

== ENCOUNTER 2024-12-21 01:01 | Day surgery (SDC) | payer BC, SELFPAY ==
[2024-12-20 17:32] VITALS: BMI 27.5
--- NOTE | 2024-12-20 17:44 | SUR.PREOP ---
Report to the Outpatient Waiting Room, entrance under the green pavilion located off [facility], at time _0800_ on date _12/21/24_. Planned Procedure Time: _1000_.? Time changes happen often and if your time is changed the preop area will call you the afternoon before. - You and your visitor will be asked to self-screen and do not enter if you have any COVID symptoms. Please call surgeon if you need to reschedule. - A mask is optional within the hospital at this time. Patients may have clear liquids (water, carbonated beverages, clear teas, apple juice) until 3 hours (0700) prior to surgery with a maximum of 20 ounces. - No food from midnight until time of surgery and no smoking, or chewing tobacco (or any form of nicotine). No chewing gum, candy or mints. - Infants may have breast milk until 4 hours before surgery, infant formula 6 hours prior to surgery. - Children will be allowed to drink immediately following surgery.? If applicable, please bring a bottle or sippy cup to assist with drinking. Juice, water, soda, and popsicles are readily available.? For infants on formula, please bring formula the day of surgery.? Pacifiers are allowed. Take only the following medications with a SIP of water on the morning of surgery: _NA_ DO NOT STOP ANY OF YOUR OTHER PRESCRIPTION MEDICATIONS PRIOR TO SURGERY EXCEPT THE FOLLOWING Hold all vitamins and supplements for 3 days per anesthesiologist. Medications to discontinue per physician _NA_ Date to take last dose_NA_ Please no make-up, nail gibraltarian, hairspray, perfume, deodorant, or body powder the day of surgery.? No jewelry (including any body piercings) or valuables the day of surgery, leave them at home.? Please take a shower or bath the night before, or the morning of, surgery with an antibacterial soap.? Wear comfortable, loose fitting clothing.? Children are encouraged to wear pajamas. - Jewelry must be removed prior to entering the operating room.? Rings and piercings that are not removed may be cut off. - The hospital will not accept responsibility for valuables.? - Please leave all valuables, including medications, at home the day of surgery. If you are going home after surgery, a licensed patrol driver must drive you home.? - NO public transportation without another adult if you receive anesthesia. - We recommend that an adult stay with you for 24 hours following discharge. - We also recommend that you do not drive, make important decision, drink alcoholic beverages, or take any drugs that were not prescribed by your health care provider for at least 24 hours after your discharge time. For Pediatric surgeries, we recommend two adults accompany the child home. Follow any additional instructions given to you from your surgeon. Telephone instructions given to _Artemio_and asked if any additional questions and then verbalized understanding. Patient advised to call surgeon office or pre surgery nurse liaison [phone] if any additional questions.
[2024-12-21] VITALS (8 sets, daily range): BP systolic 112–154; BP diastolic 73–88; PULSE 80–99; RESP 12–18; TEMP 36.3–37.1; O2SAT 96–100
--- NOTE | ~2024-12-21 | XR_ITS ---
EXAMINATION: XR retrograde pyelo w/stent RT DATE: 12/21/2024 10:25 INDICATION: Right-sided renal stone TECHNIQUE: 3 fluoroscopic images of the abdomen and pelvis were obtained during procedure performed jacey Chatman. Radiologist was not present for the imaging or procedure. The amount of fluoroscopy t lio used during this procedure was 0.3 minutes. Total DAP was 0.180 mGym^2. COMPARISON: CT dated 12/16/2024 FINDINGS: Images demonstrate cannulation and retrograde contrast injection into the right renal collecting syst em which empties mild hydronephrosis. The previously seen distal right ureteral stone is not identifi ed and may have either passed or been extracted. Final image demonstrates a right ureteral stent with proximal loop formed in the right renal pelvis. IMPRESSION: 1. Fluoroscopy utilized during reported right ureteral stone extraction and internal ureteral stent p lacement which is in expected position. See procedure note for further detail. Reviewed, dictated and finalized at location A. IMPRESSION: 1. Fluoroscopy utilized during reported right ureteral stone extraction and int ernal ureteral stent placement which is in expected position. See procedure not e for further detail.
--- OUTSIDE RECORDS SUMMARY | 2024-12-21 01:04 | XMS_ITS | Continuity of Care Document ---
Author Organization [facility] Address [address] [place] [address] Phone Care Team Providers Care Radiotelephone Technical Operator Name Role Phone Matthias Lizarraga MD Unavailable [...] Diagnoses Date Provider Providers Copied on Encounter [facility], [address] [place], [address], [place] tel:[phone] [facility] No Information 2 Zia Rizzo. [address] [place], [place], [address] , [place]. tel:[phone] OFFICE/OUTPA TIENT VISIT, EST [facility], [address] [place], [place], [address], [place] tel:[phone] [facility] Medicine weight1 (chief complaint) fatigue1 (chief complaint) dysphagia1 (chief complaint) murmur1 (chief complaint) Abnormal weight lossGoiterCardiac murmurDysphagiaGERD w/o esophagitisFatigueO ther abnormality of red blood cells Oct- 2 Zia Rodriguez [address], [place], [place], [address] , [place]. tel:[phone] OFFICE/OUTPA TIENT VISIT, [facility] [place], [address], [place], [place], [address], [place] tel:[phone] [facility] thyromegal y1 (chief complaint) RBC (chief complaint) LFT (chief complaint) irregular1 (chief complaint) GoiterOther abnormality of red blood cellsLiver diseaseFatigueIrreg ular periodAbnormal weight gain 1 Zia Rodriguez [address], [place], [place], [address] , [place]. tel:[phone] OFFICE/OUTPA TIENT VISIT, [facility] [place], [address], [place], [place], [address], [place] tel:[phone] [facility] thyroid1 (chief complaint) LFT (chief complaint) HLP (chief complaint) weight1 (chief complaint) RBC (chief complaint) Liver diseaseDisorder of thyroid, unspecifiedHyperlip idemiaAbnormal weight gainOther abnormality of red blood cells 1 Zia Rodriguez [address], [place], [place], [address] , [place]. tel:[phone] PREV VISIT, NEW, AGE 18-39 [facility], [address] [place], [address], [place] tel:[phone] [facility] physical (chief complaint) Encounter for general adult medical exam w abnormal findingsHeadacheEss ential (primary) hypertensionAmenorr heaPain in right kneeFamily history of other endocrine disease 1 Zia Rodriguez [address], [place], [place], [address] , [place]. tel:[phone] Family History Family Member Type Diagnosis Age [...] ATTENDED ordered Referral Referred To: Lon Kumar [id number] [facility]
[address] [place], [place] [id number] Ordered: Referrals: Allopathic & Osteopathic Physicians : Internal Medicine : Endocrinology, Diabetes & Metabolism. Lon Kumar. Evaluate and treat ordered Referral Ordered: US THYROID ordered History Of Present Illness Encounter Date Complaint History Of Prese nt Illness murmur1 Pt has mild syst olic murmur. [...] edema. Pt did not do sleep study dysphagia1 Pt notices mild dysphagia especially around [...] change of bowel, blood in stool, etc LFT Pt has history o f mildly elevated LFT .Pt denies any abd pain or jaundice. Her repeat LFT is ok. No viral hepatitis. RBC Pt has high RBC without polycythemia. Her iron and ferritin are ok. Pt denies any family history of bone marrow disease or leukopenia irregular Pt has irregular period. Pt denies any abd or pelvic pain or vaginal discharge .Pt has chronic irregular period for long time. Pt has normal testosterone level. Pt denies any dysmenorrhea or menorrhagia thyromegaly1 Pt has mild thyr omegaly. Pt denies any dysphagia or sore throat. Pt notices mild trouble with breathing at night and she does snore. Pt feels fatigue in the morning and sometimes dizziness in the morning Pt denies any headache . Pt sometimes feel tightness around thyroid area. weight1 Pt has difficult y losing weight despite diet and exercise. HLP Pt has mild high tg Pt is not on any diet LFT Pt has mild high LFT Pt denies any abd pain or jaundice. Pt rarely drinks alcohol. thyroid1 Pt has high TPO her TSH is ok Pt has family history of gaviota disease. Pt denies any dysphagia or neck pain RBC Pt has slightly high RBC without polycythemia. Her iron and ferritin level ok physical Pt needs annual physical Pt states [...]
--- OUTSIDE RECORDS SUMMARY | 2024-12-21 01:04 | XMS_ITS | Referral Summary ---
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
--- OUTSIDE RECORDS SUMMARY | 2024-12-21 01:04 | XMS_ITS | Clinical Summary ---
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 Gender Identity Not on file Sexual Orientation [...] patient's age to complete this topic Insurance [employer] [place] Member Subscriber Plan / Payer (Ef fective 2021-Present) Name:Brynn Artemio Relation to Subscriber:Spouse Name:JEY JONES Date of :1991 (Home) Address: [address] [place] [address] Payer ID:[id number] (NAIC) Type: OTHER Address: [address] [place] [phone] [employer] [place] Member Subscriber Plan / Payer (Ef fective 2021-Present) Name:Brynn Artemio Relation to Subscriber:Spouse Name:JEY JONES Date of :1991 (Home) Address: [address] [place] [address] Payer ID:[id number] (NAIC) Type: OTHER Address: [address] [place] [phone] Care Teams Data Warehouse Architect Relationship Specialty Start Date End Date Ananth Newsome PA [address] [place] [address] PCP - General Family Medicine 06/17/24
--- OUTSIDE RECORDS SUMMARY | 2024-12-21 01:04 | XMS_ITS | Clinical Summary ---
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
--- NOTE | 2024-12-21 07:24 | P.HP_ITS ---
H&P: HPI History of Present Illness Date/Time: 12/21/24 07:24 Chief Complaint: right ureteral calculus Narrative: 29 yr old female found to have a 5 mm right ureteral calculus. Here for definitive management. Review of Systems Review of Systems: All systems reviewed & are unremarkable except as noted in HPI and below [facility] Past Medical History Medical History PIH ( induced hypertension) Family History Family History Sibling Diabetes mellitus Audra's thyroiditis Father Hypertension Heart disease Mother Narcolepsy and cataplexy Social History Social History Smoking status: Never smoker Second hand tobacco smoke exposure: No Alcohol intake: never Substance use: never Substance use type: does not use Lack of Transportation: No Lack of Food: Never True Current Housing: I Have Housing Concerned About Future Housing: No Difficulty Paying Gas/Electric Bills: No Difficulty Paying for Meds: No Currently Unemployed: No Education: Bachelor's Degree Difficulty w/ Childcare or Family Care: No Living arrangements: with family Additional living arrangements comments: and children Gender identity (if verbalized by the patient): Female Spiritual care concerns: No Meds Home Medications and Allergies Home Medications ?Medication ?Instructions ?Recorded ?Confirmed ?Type ondansetron 4 mg disintegrating 4 mg PO Q8H PRN nausea and 12/16/24 12/20/24 Rx tablet vomiting #15 tabs oxycodone 5 mg tablet 5 mg PO Q6H PRN pain #15 tabs 12/16/24 12/20/24 Rx tamsulosin 0.4 mg capsule (Flomax) 0.4 mg PO DAILY #7 caps 12/16/24 12/20/24 Rx Allergies Allergy/AdvReac Type Severity Reaction Status Date / Time No Known Allergies Allergy Verified 12/20/24 17:30 Exam Const: General: cooperative Resp: Effort & Inspection: normal respiratory effort Cardio: Rate: regular rate Rhythm: regular rhythm Assessment and Plan Assessment and plan (1) Right ureteral calculus: Code(s): N20.1 - Calculus of ureter Status: Acute Assessment and Plan: Proceed with cystoscopy, right retrograde, right ureteroscopy with stone extraction, possible laser, stent placement
[2024-12-21] MEDS: LACTATED RINGERS 1,000 ML 30 ML IV CONT (09:20)
--- NOTE | 2024-12-21 09:23 | WPDANESEPPF ---
Anes - Initial Pre Proc Eval Procedure: Operation Date: 12/21/24 10:00 Proposed Procedures p Cystoscopy, Right Ureteroscopy, Possible Right Retrograde Pyelogram, Possible Right Stone Extraction, Possible Right Stent Placement, Possible Holmium Laser Procedure - Nick Chatman MD Date/Time: 12/21/24 09:23 Surgeon: Nick Chatman MD Pre Op Diagnosis: right kidney stones Patient Data Age: 29 Gender: F Height: 1.6 m Weight: 70.75 kg Last Vital Signs Temp 98.7 F 12/21/24 08:20 Pulse 99 12/21/24 08:20 Resp 16 12/21/24 08:20 BP 154/88 H 12/21/24 08:20 Pulse Ox 98 12/21/24 08:20 O2 Del Method Room Air 12/21/24 08:20 Allergies Allergy/AdvReac Type Severity Reaction Status Date / Time No Known Allergies Allergy Verified 12/21/24 09:08 Home Medications ?Medication ?Instructions ?Recorded ?Confirmed ?Type ondansetron 4 mg disintegrating 4 mg PO Q8H PRN nausea and 12/16/24 12/20/24 Rx tablet vomiting #15 tabs oxycodone 5 mg tablet 5 mg PO Q6H PRN pain #15 tabs 12/16/24 12/20/24 Rx tamsulosin 0.4 mg capsule (Flomax) 0.4 mg PO DAILY #7 caps 12/16/24 12/20/24 Rx Patient hx anesthesia problems: none Family hx anesthesia problems: none Results Review: All pre-operative results and documents have been reviewed as part of the pre-operative evaluation. [facility] Past Medical History Medical History PIH ( induced hypertension) Family History Family History Sibling Diabetes mellitus Audra's thyroiditis Father Hypertension Heart disease Mother Narcolepsy and cataplexy Social History Social History Smoking status: Never smoker Second hand tobacco smoke exposure: No Alcohol intake: never Substance use: never Substance use type: does not use Lack of Transportation: No Lack of Food: Never True Current Housing: I Have Housing Concerned About Future Housing: No Difficulty Paying Gas/Electric Bills: No Difficulty Paying for Meds: No Currently Unemployed: No Education: Bachelor's Degree Difficulty w/ Childcare or Family Care: No Living arrangements: with family Additional living arrangements comments: and children Gender identity (if verbalized by the patient): Female Spiritual care concerns: No Anes - Eval Final PreProcedure Day of Procedure 12/21/24 09:23 Patient weight: normal Heart: regular rate and rhythm Lungs: clear to auscultation Airway: Mallampati scale class II Neurological: alert and oriented Last oral intake: >/= 8 hours ASA classification: II Emergent: no Anesthetic plan: proceed Anesthesia type and monitoring: general LMA and standard monitoring Results Review: All pre-operative results and documents have been reviewed as part of the pre-operative evaluation. Informed Consent: The patient's anesthetic plan and its attendant risks and benefits were discussed with the patient/family/POA. Questions were solicited and answers provided to the satisfaction of the patient/family/POA.
--- NOTE | 2024-12-21 09:31 | WPDHPUPDATE1 ---
History and Physical Update Update Date/Time: 12/21/24 09:31 History and Physical has been reviewed, including an updated exam of the patient. There are NO changes in the patient's condition. Risks, benefits, and alternatives have been discussed and questions answered. Patient agrees to proceed with procedure.
[2024-12-21] MEDS: ceFAZolin 2 GM/D5W 50 ML 2 GM/50 ML BAG IVPB (09:52)
[2024-12-21 09:54] LABS: BEDSIDEPREGUCG Negative (Negative)
[2024-12-21] MEDS: LIDOCAINE 2% GEL UROJET 10 ML PKG MUCOUS MEM (10:03)
--- NOTE | 2024-12-21 10:25 | P.OP_ITS ---
Procedure Note - Detailed Date of Procedure 12/21/24 Pre-op Diagnosis right ureteral calculus 6 mm Post-op Diagnosis Same Procedure Performed Cystoscopy, right retrograde, right ureteroscopy with holmium laser, stone extraction, right ureteral stent placement 4.8 [place] contour Surgeon Nick Chatman MD Anesthesia General Description of Procedure Patient was taken to the operative suite correctly identified. Once anesthesia was obtained she was placed in the dorsal lithotomy position and prepped and draped usual sterile fashion. Twenty-two [place] scope was inserted into the bladder. There were no tumors noted. The right ureteral orifice was cannulated with a guidewire. Rigid ureteral scope was inserted after the orifice was dilated with an 8/10 dilator. The stone was visualized. It was unable to be retrieved in 1 piece. A 273 micron fiber was then used to fragment the stone. Since larger pieces were retrieved and sent for analysis. Reinspection revealed no residual stones. Pyelogram was then performed to confirm placement of the stent. 4.8 [place] contour stent was then placed with the proximal end coiled in the renal pelvis and the distal in the bladder. 2% viscous lidocaine was inserted urethra patient is taken recovery stable condition. She will be discharged home and follow-up in a week's time for stent removal. This completes dictation. Please send a copy of op note to my office. Estimated Blood Loss 0 Drains Yes Packing No Pathology Yes Complications No immediate complications Condition Stable Disposition PACU
== END 2024-12-21 12:02 | disposition home or self-care (01) ==
PROVIDERS: Visit Provider Urology
PROC: (CPT 52352; principal; 2024-12-21 10:00)
DX: N20.1 Calculus of ureter (principal)
CPT/HCPCS: 52356; 74420; 82365; 88300; C1769; C2617; J0690; J1100; J2003; J2250; J2405; J2704; J3010; J7120; Q9966